=== PATIENT | female | born 1950 | race Caucasian/White ===

== ENCOUNTER 2019-12-06 09:40 | Emergency (ER) | payer MEDICARE, SELFPAY ==
[2019-12-06 09:55] VITALS: BP 150/81; PULSE 98; RESP 16; TEMP 36.6; O2SAT 99
--- NOTE | 2019-12-06 10:20 | ED.URI ---
HPI - URI/Sore Throat General Chief Complaint: Upper Respiratory Infection Stated Complaint: upper respiratory infection Time Seen by Provider: 12/06/19 10:00 Source: patient and RN notes reviewed Mode of arrival: ambulatory Limitations: no limitations History of Present Illness HPI Narrative: Patient presents today complaining of a one-week history of copious postnasal drip, and 2 to 3-day history of productive loose cough. Denies fever, shortness of breath. Reports postnasal drip and nasal drainage are clear. She takes Rosalina for seasonal allergies. She occasionally takes Benadryl, but not too often as she has glaucoma. States she does not have good luck with steroid nasal sprays as they cause epistaxis. MD elicited complaint: other (Postnasal drip, cough) Related Data Home Medications Medication Instructions Recorded Confirmed brimonidine 0.2 % OPHTHALMIC (EYE) DAILY 12/06/19 12/06/19 glimepiride 2 mg PO DAILY 12/06/19 12/06/19 levothyroxine [Euthyrox] 112 mcg PO DAILY 12/06/19 12/06/19 lisinopril 20 mg PO DAILY 12/06/19 12/06/19 lovastatin 10 mg PO DAILY 12/06/19 12/06/19 metformin 500 mg PO QID 12/06/19 12/06/19 omeprazole 20 mg PO DAILY 12/06/19 12/06/19 Allergies Allergy/AdvReac Type Severity Reaction Status Date / Time Cephalosporins Allergy Severe HIVES ALL Unverified 12/06/19 09:47 OVER ARMS AND CHEST. ciprofloxacin Allergy Mild Nausea and Verified 12/06/19 09:47 Vomiting Sulfa (Sulfonamide Allergy Mild THRUSH Verified 12/06/19 09:47 Antibiotics) CEPHALEXIN MONOHYDRATE Allergy Mild HIVES Uncoded 12/06/19 09:47 Review of Systems Review of Systems: Narrative: CONSTITUTIONAL: Denies body aches, fever, chills, or sweats.+ Fatigue EYES: Denies visual changes, redness, or discharge. ENT: Denies rhinorrhea, congestion, sore throat, or otalgia.+ Postnasal drip, rhinorrhea CARDIOVASCULAR: Denies chest pain, palpitations, or edema. RESPIRATORY: Denies dyspnea. + Cough GASTROINTESTINAL: Denies abdominal pain, nausea, vomiting, or diarrhea. GENITOURINARY: Denies dysuria or hematuria. SKIN: Denies rash, itching, or wounds. MUSCULOSKELETAL: Denies back pain, joint pain, or myalgia. NEUROLOGIC: Denies headache, numbness, tingling, or weakness. PSYCH: Denies depression or anxiety. [facility] Past Medical History Medical History (Updated 12/06/19 @ 10:27 by Elvi Martinez, [facility], ) Diabetes Glaucoma Hypercholesterolemia Hypertension TIA (transient ischemic attack) Comments At time of signature, I have reviewed and agree with nursing past medical, surgical, social and family history unless otherwise noted. Please see nursing chart for further information. There is no relevant family history pertinent to the presenting complaint Exam Narrative: Exam Narrative: GENERAL: Well-appearing, well-nourished, and in no acute distress. HEAD: Normocephalic, atraumatic. EYES: EOMI. No redness or drainage. Conjunctivae normal. ENT: Mucous membranes pink and moist. Nares clear. No rhinorrhea. TMs normal bilaterally. Throat normal. Small amount of white postnasal drainage. Uvula midline. NECK: Normal AROM. Supple. No lymphadenopathy. CHEST: No respiratory distress. Clear to auscultation. HEART: Regular rate and rhythm. No murmur appreciated. Normal peripheral pulses. MUSCULOSKELETAL: No bony tenderness. EXTREMITIES: Normal range of motion. No edema. SKIN: Warm, dry, no rash. Capillary refill normal. Normal skin turgor. NEURO: No focal deficits. Alert and oriented x3. Gait steady. PSYCH: Normal affect. No signs of depression or anxiety. Course Vital Signs Vital signs: Vital Signs Temperature 97.8 F 12/06/19 09:55 Pulse Rate 98 12/06/19 09:55 Respiratory Rate 16 12/06/19 09:55 Blood Pressure 150/81 H 12/06/19 09:55 Pulse Oximetry 99 12/06/19 09:55 Temperature 97.8 F 12/06/19 09:55 Pulse Rate 98 12/06/19 09:55 Respiratory Rate 16 12/06/19 09:55 Blood Pressure
== END 2019-12-06 10:26 | disposition home or self-care (01) ==
PROVIDERS: Emergency Provider Nurse Practitioner; PCP Physician Assistant
DX: J30.2 Other seasonal allergic rhinitis (principal); E11.9 Type 2 diabetes mellitus without complications; I10 Essential (primary) hypertension; Z86.73 Personal history of transient ischemic attack (TIA), and cerebral infarction without residual deficits
CPT/HCPCS: 99213; G0463

== ENCOUNTER → 2020-03-29 10:25 | Outpatient (CLI) | payer MEDICARE, SELFPAY ==
--- NOTE | ~2020-03-29 | MM_ITS ---
EXAMINATION: MM screening [facility] BI w allie HISTORY: Screening mammogram TECHNIQUE: Craniocaudal and mediolateral oblique 3-D tomosynthesis images were obtained and synthetic 2-D images were generated. CAD analysis was submitted and interpreted. COMPARISON: 10/26/2018, 10/23/2017, 10/21/2016 BREAST PARENCHYMAL COMPOSITION: There are scattered areas of fibroglandular density. FINDINGS: There is no evidence of suspicious mass, calcification, or architectural distortion to sugg est malignancy in either breast. There has been no suspicious interval change. IMPRESSION: 1. No mammographic evidence of malignancy. 2. Recommend routine screening mammography in one year. BI-RADS Category 1: Negative Reviewed, dictated and finalized at location A.
--- NOTE | ~2020-03-29 | DEXA_ITS ---
Bone Density Report Name: Debbie Enriquez Age: 69 Sex: Female Ethnicity: White Date of : 1950 Indication: postmenopausal; screening for osteoporosis; height loss; hysterectomy; Referring Provider: ELEONORA, JOS Study: Bone densitometry was performed. Exam Date: March 29, 2020 Accession number: [id number] Bone Density: Region BMD T-score Z-score Classification AP Spine (L1, L2) 1.192 1.9 3.9 Normal Femoral Neck (Left) 0.907 0.5 2.3 Normal Total Hip (Left) 0.955 0.1 1.6 Normal Femoral Neck (Right) 0.818 -0.3 1.5 Normal Total Hip (Right) 0.847 -0.8 0.7 Normal Total Hip Mean 0.901 -0.4 1.2 Normal World Health Organization criteria for BMD impression classify patients as: Normal (T-score at or above -1.0), Osteopenia (T-score between -1.0 and -2.5), or Osteoporosis (T-score at or below -2.5). 10-year Fracture Risk: FRAX not reported because: All T-scores for Spine Total, Hip Total, Femoral Neck at or above -1.0 Clinical Information Provided by Patient: Has used the following medications: Vitamin D Has the following medical conditions: Hysterectomy Patient maximum height was 71 Menopause Age: 47 No regular weight bearing exercise Drinks caffeinated beverages Onset of menses at age 13 Number of children 1 Impression: The patient has normal bone mass. Discussion: BONE DENSITY IS ABOVE THE MINIMUM DESIRABLE LEVEL AT ALL SKELETAL SITES TESTED. This patient?s bone mineral density is above the minimum desirable level (T-score -1.0 or better) at all sites measured. The patient should follow a healthful lifestyle (good nutrition with adequate calcium and vitamin D, and appropriate weight-bearing exercise). Follow-Up: Consider repeating this study in 5 years or sooner if there is some new clinical indication. Reported by: [facility] on 03/29/2020 10:56:00 AM. Reviewed, dictated and finalized at location AJersey MORTENSEN
== END ==
PROVIDERS: Visit Provider Physician Assistant
DX: Z12.31 Encounter for screening mammogram for malignant neoplasm of breast (principal); Z78.0 Asymptomatic menopausal state
CPT/HCPCS: 77063; 77067; 77080

== ENCOUNTER 2020-07-10 00:34 | Outpatient (CLI) | payer MEDICARE, SELFPAY ==
[2020-07-10 19:06] LABS: SARS-CoV-2 RNA PCR Negative
== END 2020-07-10 00:35 | disposition home or self-care (01) ==
LOC: ANHCOVIDDT 00:34
PROVIDERS: PCP Physician Assistant; Visit Provider Internal Medicine Gastroenterology
DX: Z01.812 Encounter for preprocedural laboratory examination (principal); Z20.822 Contact with and (suspected) exposure to COVID-19
CPT/HCPCS: C9803; U0003

== ENCOUNTER 2020-07-13 00:25 | Day surgery (SDC) | payer MEDICARE, SELFPAY ==
[2020-07-06 08:41] VITALS: BMI 26.9
[2020-07-13 08:19] VITALS: BP 153/91; PULSE 111; RESP 16; TEMP 36.1; O2SAT 99
[2020-07-13 08:37] LABS: Glucose Point of Care 195 (65-105)
[2020-07-13] MEDS: LACTATED RINGERS 1,000 ML 150 ML IV CONT (08:40)
--- NOTE | 2020-07-13 09:40 | WPDANESEPPF ---
Anes - Initial Pre Proc Eval Procedure: Operation Date: 07/13/20 09:30 Proposed Procedures p Screening Colonoscopy - Madan Caruso DO Date/Time: 07/13/20 09:40 Surgeon: Madan Caruso DO Pre Op Diagnosis: neoplasm screening Patient Data Age: 69 Gender: F Height: 5 ft 10 in Weight: 85.3 kg Last Vital Signs Temp 97.0 F L 07/13/20 08:19 Pulse 111 H 07/13/20 08:19 Resp 16 07/13/20 08:19 BP 153/91 H 07/13/20 08:19 Pulse Ox 99 07/13/20 08:19 Allergies Allergy/AdvReac Type Severity Reaction Status Date / Time ciprofloxacin Allergy Mild Nausea and Verified 07/13/20 08:18 Vomiting Sulfa (Sulfonamide Allergy Mild THRUSH Verified 07/13/20 08:18 Antibiotics) CEPHALEXIN MONOHYDRATE Allergy Mild HIVES Uncoded 07/13/20 08:18 Home Medications Medication Instructions Recorded Confirmed Type brimonidine 0.2 % OPHTHALMIC (EYE) DAILY 12/06/19 07/06/20 History glimepiride 2 mg PO DAILY 12/06/19 07/06/20 History levothyroxine [Euthyrox] 112 mcg PO DAILY 12/06/19 07/06/20 History lisinopril 20 mg PO DAILY 12/06/19 07/06/20 History metformin 500 mg PO QID 12/06/19 07/06/20 History omeprazole 20 mg PO DAILY 12/06/19 07/06/20 History aspirin 81 mg PO DAILY 07/06/20 07/06/20 History diphenhydramine HCl [Benadryl 25 mg PO HS PRN 07/06/20 07/06/20 History Allergy] fexofenadine [Rosalina] 180 mg PO DAILY 07/06/20 07/06/20 History Laboratory Tests 07/13/20 08:35 POC Capillary Glucose 195 mg/dl H mg/dl (65-105) Patient hx anesthesia problems: none Family hx anesthesia problems: none PMFSH Past Medical History Medical History (Updated 12/07/19 @ 00:00 by Background Daemon) Diabetes Glaucoma Hypercholesterolemia Hypertension TIA (transient ischemic attack) Social History Social History Smoking status: Never smoker Alcohol intake: never Substance use: never Substance use type: does not use Living arrangements: with family Spiritual care concerns: No Anes - Eval Final PreProcedure Day of Procedure 07/13/20 09:40 Patient weight: overweight Heart: regular rate and rhythm Lungs: clear to auscultation Airway: Mallampati scale class II Neurological: alert and oriented Last oral intake: >/= 8 hours ASA classification: III Emergent: no Anesthetic plan: proceed Anesthesia type and monitoring: general GIVS and standard monitoring Informed Consent: The patient's anesthetic plan and its attendant risks and benefits were discussed with the patient/family/POA. Questions were solicited and answers provided to the satisfaction of the patient/family/POA.
--- NOTE | 2020-07-13 09:57 | PM.IMHP ---
H&P: HPI History of Present Illness Date/Time: 07/13/20 09:57 Chief Complaint: Reason for visit colonoscopy. Narrative: Reason for visit this colonoscopy. This very pleasant lady's seen in consultation request the primary physician. Impression: Screening and surveillance colonoscopy. Patient's history adenomatous colon polyps. GERD controlled with medication. History of pancreatitis and pancreatic cyst. DM. HTN. Hypothyroidism. Glaucoma. Recommendation: Colonoscopy. Patient should have MRI of the pancreas due to pancreatic cystic lesion. History: This very pleasant lady is here for screening and surveillance colonoscopy. She has history adenomatous colon polyps. She has a history of reflux disease well controlled on medication. Previously she has had an EUS for pancreatic cyst. She has had pancreatitis previously. she is due for follow-up. GI review systems negative. Physical examination: General: very pleasant patient in no acute distress. HEENT: Head was normocephalic sclerae is clear mouth without masses neck was supple. Heart: Rate rhythm regular without S3 or S4. Lungs: CTA. Abdomen: Soft with no guarding or rigidity. Bowel sounds were active. Neurologic: Cranial nerves 2 through 12 intact. No focal defects. No clonus. Musculoskeletal system: Revealed no joint tenderness or swelling no muscle atrophy. Extremities: Reveal no significant edema. Skin: Warm and dry with normal turgor. Mental status: intact. Patient is alert and oriented. Review of Systems Review of Systems: All systems reviewed & are unremarkable except as noted in HPI and below PMFSH Past Medical History Medical History (Updated 07/13/20 @ 09:56 by Madan Caruso DO) Adenomatous colon polyp Diabetes GERD (gastroesophageal reflux disease) Glaucoma Hypercholesterolemia Hypertension Hypothyroid Pancreatic cyst Pancreatitis TIA (transient ischemic attack) Surgical History Surgical History (Updated 07/13/20 @ 09:57 by Madan Caruso DO) History of esophagogastroduodenoscopy (EGD) Hx of colonoscopy Social History Social History Smoking status: Never smoker Alcohol intake: never Substance use: never Substance use type: does not use Living arrangements: with family Spiritual care concerns: No Meds Home Medications and Allergies Home Medications Medication Instructions Recorded Confirmed Type brimonidine 0.2 % OPHTHALMIC (EYE) DAILY 12/06/19 07/06/20 History glimepiride 2 mg PO DAILY 12/06/19 07/06/20 History levothyroxine [Euthyrox] 112 mcg PO DAILY 12/06/19 07/06/20 History lisinopril 20 mg PO DAILY 12/06/19 07/06/20 History metformin 500 mg PO QID 12/06/19 07/06/20 History omeprazole 20 mg PO DAILY 12/06/19 07/06/20 History aspirin 81 mg PO DAILY 07/06/20 07/06/20 History diphenhydramine HCl [Benadryl 25 mg PO HS PRN 07/06/20 07/06/20 History Allergy] fexofenadine [Rosalina] 180 mg PO DAILY 07/06/20 07/06/20 History Allergies Allergy/AdvReac Type Severity Reaction Status Date / Time ciprofloxacin Allergy Mild Nausea and Verified 07/13/20 08:18 Vomiting Sulfa (Sulfonamide Allergy Mild THRUSH Verified 07/13/20 08:18 Antibiotics) CEPHALEXIN MONOHYDRATE Allergy Mild HIVES Uncoded 07/13/20 08:18 Vital Signs Vital Signs - 24 hr 07/13/20 08:19 Temperature 36.1 C L Pulse Rate 111 H Respiratory Rate 16 Blood Pressure 153/91 H Pulse Oximetry 99
[2020-07-13 10:36] VITALS: BP 101/44; PULSE 78; RESP 16; O2SAT 100
[2020-07-13 10:46] VITALS: BP 117/61; PULSE 83; RESP 16; O2SAT 99
[2020-07-13 10:56] VITALS: BP 136/64; PULSE 50; RESP 16; O2SAT 100
[2020-07-18 06:14] LABS: CA 19-9 27 U/mL (<34)
== END 2020-07-13 11:23 | disposition home or self-care (01) ==
PROVIDERS: PCP Physician Assistant; Visit Provider Internal Medicine Gastroenterology
PROC: 0DJD8ZZ Inspection of Lower Intestinal Tract, Via Natural or Artificial Opening Endoscopic (ICD-10-PCS; CPT 45378; principal; 2020-07-13 09:30)
DX: Z12.11 Encounter for screening for malignant neoplasm of colon (principal); D12.3 Benign neoplasm of transverse colon; D12.4 Benign neoplasm of descending colon; D12.2 Benign neoplasm of ascending colon; K63.5 Polyp of colon; K64.8 Other hemorrhoids; K86.2 Cyst of pancreas; I10 Essential (primary) hypertension; E11.9 Type 2 diabetes mellitus without complications; E78.00 Pure hypercholesterolemia, unspecified; H40.9 Unspecified glaucoma; K21.9 Gastro-esophageal reflux disease without esophagitis; E03.9 Hypothyroidism, unspecified; Z86.73 Personal history of transient ischemic attack (TIA), and cerebral infarction without residual deficits; Z79.84 Long term (current) use of oral hypoglycemic drugs; Z79.82 Long term (current) use of aspirin; Z20.822 Contact with and (suspected) exposure to COVID-19
CPT/HCPCS: 45385; 45380; 36415; 86301; 88305; C9803; J2704; J7120; U0003

== ENCOUNTER 2020-08-03 09:40 | Outpatient (CLI) | payer MEDICARE, SELFPAY ==
--- NOTE | ~2020-08-03 | CT_ITS ---
EXAMINATION: CT abdomen pelvis w con DATE: 08/03/2020 10:19 INDICATION: Abdominal distention TECHNIQUE: Computed tomography (CT) of the abdomen and pelvis was performed with 100 cc intravenous c ontrast. Automated exposure control and iterative reconstruction technique were employed. Exam dose: 730.65 mGy-cm total exam DLP. COMPARISON: 10/14/2013 CT abdomen pelvis FINDINGS: The lung bases are clear of infiltrate or consolidation. Normal heart size. No pericardial or pleural effusion. There is a very small sliding hiatal hernia. Hepatic steatosis. There are numerous calcified hepatic and splenic granulomas consistent with old granulomatous disease . No hepatic or splenic space-occupying mass lesion is evident. The gallbladder is distended but no g allbladder wall thickening or pericholecystic fluid or fat stranding is noted. No bile duct dilatatio n or pancreatic duct dilatation is evident. Mildly diminished size of a cystic lesion of the pancreatic tail since 10/14/2013, consistent with jorden ign process. 9 mm cystic area in the uncinate process of the pancreas appears stable since 10/14/2013. Normal morphology of the adrenal glands. 9 mm lower pole left renal cyst. No other renal space occupying mass lesion. No urinary tract calculu s or hydroureteronephrosis. The urinary bladder is unremarkable. Status post hysterectomy. Normal caliber of the abdominal aorta. No intraperitoneal or retroperitoneal or pelvic mass lesion or adenopathy or ascites. There is diverticulosis of the sigmoid colon; no CT evidence of diverticulitis. No bowel obstruction, bowel wall thickening, pneumatosis or intraperitoneal free air is evident. Normal appendix. There is degenerative change of the thoracic spine. There is severe degenerative change of the lumbar spine. IMPRESSION: Very small sliding hiatal hernia Hepatic steatosis Stable pancreatic cysts since 10/14/2013 9 mm lower pole left renal cyst Diverticulosis of the sigmoid colon Reviewed, dictated and finalized at Location A. Reviewed, dictated and finalized at location A. GER FRENCH
[2020-08-03 10:10] LABS: Estimated Glomerular Filt Rate > 60
== END 2020-08-03 09:41 | disposition home or self-care (01) ==
PROVIDERS: PCP Physician Assistant; Visit Provider Internal Medicine Gastroenterology
DX: R14.0 Abdominal distension (gaseous) (principal); K44.9 Diaphragmatic hernia without obstruction or gangrene; K76.0 Fatty (change of) liver, not elsewhere classified; N28.1 Cyst of kidney, acquired; K57.30 Diverticulosis of large intestine without perforation or abscess without bleeding
CPT/HCPCS: 74177; Q9967

== ENCOUNTER → 2021-05-03 10:10 | Outpatient (CLI) | payer MEDICARE, SELFPAY ==
--- NOTE | ~2021-05-03 | MM_ITS ---
EXAMINATION: MM screening [facility] BI w allie HISTORY: Screening TECHNIQUE: Craniocaudal and mediolateral oblique 3-D tomosynthesis images were obtained and synthetic 2-D images were generated. CAD analysis was submitted and interpreted. COMPARISON: Comparison to multiple prior studies sequentially, with oldest reviewed study dated 02/27. BREAST PARENCHYMAL COMPOSITION: There are scattered areas of fibroglandular density. FINDINGS: There is no evidence of suspicious mass, calcification, or architectural distortion to sugg est malignancy in either breast. There has been no suspicious interval change. IMPRESSION: 1. No mammographic evidence of malignancy. 2. Recommend routine screening mammography in one year. BI-RADS Category 1: Negative Reviewed, dictated and finalized at location A.
== END ==
PROVIDERS: PCP Physician Assistant; Visit Provider Physician Assistant
DX: Z12.31 Encounter for screening mammogram for malignant neoplasm of breast (principal)
CPT/HCPCS: 77063; 77067

== ENCOUNTER 2021-08-09 12:25 | Emergency (ER) | payer MEDICARE, SELFPAY ==
--- NOTE | ~2021-08-09 | XR_ITS ---
XR lumbar spine 2-3V DATE: 08/09/2021 13:01 INDICATION: Lower back pain TECHNIQUE: AP, lateral, coned lateral lumbosacral views COMPARISON: 06/10/2018 lumbar spine FINDINGS: There is diffuse osteopenia. There is approximately 26 degrees levoscoliosis measured T11-L4. There is severe degenerative disc disease at L2-3, L3-4, L4-5 and L5-S1, with moderate thoracolumbar degenerative disc disease above these levels. No fracture or bone destruction is evident. The lumbar pedicles and included lower thoracic pedicles appear intact. The sacroiliac joints are intact. IMPRESSION: 26 degrees levoscoliosis from T11 to L4 Severe degenerative disc disease of the lumbar spine No significant change since 06/10/2018 Reviewed, dictated and finalized at location A. PLACER
--- NOTE | 2021-08-09 12:36 | ED.BACK ---
HPI - Back Pain/Injury General Chief Complaint: Back Pain/Injury Stated Complaint: arm and back pain Time Seen by Provider: 08/09/21 12:40 Source: patient, family, RN notes reviewed and old records reviewed Mode of arrival: ambulatory Limitations: no limitations History of Present Illness HPI Narrative: 70-year-old female presents to the [facility] with right deltoid pain and lower back pain for the last 5 weeks. Patient states that her COVID shot was very painful and her arm has been hurting ever since in the right deltoid right upper arm. Patient has a history of chronic back pain, states she is seen her primary care provider multiple times and has a very bad back. States today after she got her Covid vaccine her back started hurting. Denies any urinary symptoms. No frequency urgency or burning. No numbness or tingling in extremities. Patient reports that the pain shoots down both her legs. No pelvic pain. No saddle anesthesia. MD elicited complaint: back pain Pertinent past history: prior back pain Related Data Home Medications Medication Instructions Recorded Confirmed glimepiride 2 mg PO DAILY 12/06/19 08/09/21 lisinopril 20 mg PO DAILY 12/06/19 08/09/21 metformin 500 mg PO QID 12/06/19 08/09/21 levothyroxine 125 mcg DAILY 08/09/21 08/09/21 Allergies Allergy/AdvReac Type Severity Reaction Status Date / Time ciprofloxacin Allergy Mild Nausea and Verified 02/08/21 10:21 Vomiting Sulfa (Sulfonamide Allergy Mild THRUSH Verified 02/08/21 10:21 Antibiotics) cephalexin Allergy Unknown Verified 02/08/21 10:21 CEPHALEXIN MONOHYDRATE Allergy Mild HIVES Uncoded 02/08/21 10:21 Review of Systems Review of Systems: All systems reviewed & are unremarkable except as noted in HPI and below Constitutional: Constitutional: Reports no additional constitutional complaints and Denies weakness Eyes: Eyes: Reports no additional eye complaints ENT: Reports system reviewed and no additional complaints, except as documented Cardiovascular: Cardiovascular: Reports no additional cardiovascular complaints and Denies chest pain Respiratory: Respiratory: Reports no additional respiratory complaints, Denies cough and Denies dyspnea Gastrointestinal: Gastrointestinal: Reports no additional gastrointestinal complaints, Denies abdominal pain, Denies nausea and Denies vomiting Genitourinary: Genitourinary: Reports no additional female genitourinary complaints Musculoskeletal: Musculoskeletal: Reports as per HPI, Reports back pain (Lumbar), Reports muscle cramps (Right upper arm, deltoid x5 weeks) and Denies numbness Integumentary/Breasts: Skin/Breast: Reports system reviewed and no additional complaints, except as docu Neurologic: Reports system reviewed and no additional complaints, except as documented, Denies focal weakness, Denies numbness and Denies weakness Psychiatric: Psychiatric: Reports no additional psychiatric complaints Allergic/Immunologic: Allergic/Immunologic: Reports no additional allergic/immunologic complaints PMFSH Past Medical History Medical History Adenomatous colon polyp Diabetes GERD (gastroesophageal reflux disease) Glaucoma Hypercholesterolemia Hypertension Hypothyroid Pancreatic cyst Pancreatitis TIA (transient ischemic attack) Surgical History Surgical History History of esophagogastroduodenoscopy (EGD) Hx of colonoscopy Family History Family History Mother Hypertension Family history of cardiovascular disease Father Family history of cardiovascular disease Family history of Alzheimer's disease Social History Social History Smoking status: Never smoker Alcohol intake: never Substance use: never Substance use type: does not use Spiritual care concerns: No Comments At the ti
[2021-08-09 12:41] VITALS: BP 174/94; PULSE 100; RESP 18; TEMP 37.2; O2SAT 100
[2021-08-09 13:25] LABS: Glucose Point of Care 243 mg/dl (65-105)
== END 2021-08-09 13:38 | disposition home or self-care (01) ==
PROVIDERS: Emergency Provider Nurse Practitioner; PCP Physician Assistant
DX: M54.16 Radiculopathy, lumbar region (principal); M51.36 Other intervertebral disc degeneration, lumbar region; G89.29 Other chronic pain; M54.50 Low back pain, unspecified; E11.9 Type 2 diabetes mellitus without complications; K21.9 Gastro-esophageal reflux disease without esophagitis; H40.9 Unspecified glaucoma; E78.00 Pure hypercholesterolemia, unspecified; I10 Essential (primary) hypertension; E03.9 Hypothyroidism, unspecified; Z86.73 Personal history of transient ischemic attack (TIA), and cerebral infarction without residual deficits
CPT/HCPCS: 72100; 82948; 99213; G0463

== ENCOUNTER 2021-08-15 07:55 | Emergency (ER) | payer MEDICARE, SELFPAY ==
--- NOTE | ~2021-08-15 | CT_ITS ---
EXAMINATION: CT lumbar spine wo con DATE: 08/15/2021 09:24 INDICATION: Low back injury. Ankylosing spondylitis. TECHNIQUE: Computed tomography (CT) of the lumbar spine was performed without intravenous contrast. A utomated exposure control and iterative reconstruction technique were employed. The dose-length produ ct was 1198.44 mGy-cm. COMPARISON: Lumbar spine radiographs 08/09/2021, 01/19/04 FINDINGS: There is 26 degrees levoscoliosis of thoracolumbar spine. Vertebral body heights are normal . There is severely decreased disc height from L3-L4 through L5-S1 with endplate remodeling. There ar e bridging endplate osteophytes from T11-T12 through L2-L3. There is fusion of the spinous processes from T11-T12 through L2-L3. There is mildly decreased disc height from T11-T12 through L1-L2 and mode rately decreased disc height at L2-L3 with disc calcifications of some of these levels. There is mode rate osteoarthritis of the sacroiliac joints. The following disc levels are specifically discussed: L1-L2: The disc does not extend beyond the endplate margin. There is mild bilateral facet joint hyper trophy. There is no neural foraminal stenosis. There is no central canal stenosis. L2-L3: The disc does not extend beyond the endplate margin. There is moderate bilateral facet joint h ypertrophy. There is mild bilateral neural foraminal stenosis. There is no central canal stenosis. L3-L4: The disc is bulging. There is severe bilateral facet joint osteoarthritis. There is moderate r ight and mild left neural foraminal stenosis. There is mild central canal stenosis. L4-L5: The disc is bulging. There is severe bilateral facet joint osteoarthritis. There is moderate b ilateral neural foraminal stenosis. There is mild central canal stenosis. L5-S1: The disc is bulging. There is severe bilateral facet joint osteoarthritis. There is mild right and moderate left neural foraminal stenosis. There is mild central canal stenosis. IMPRESSION: 1. No fracture. 2. Severe lumbar spondylosis. 3. Thoracolumbar levoscoliosis. 4. Bridging endplate osteophytes and spinous process fusion from the thoracic spine to L3, consistent with diffuse idiopathic skeletal hyperostosis (DISH). Reviewed, dictated and finalized at location A. ER RIDER IMPRESSION: 1. No fracture. 2. Severe lumbar spondylosis. 3. Thoracolumbar levoscoliosis. 4. Bridging endplate osteophytes and spinous process fusion from the thoracic s pine to L3, consistent with diffuse idiopathic skeletal hyperostosis (DISH).
[2021-08-15 08:00] VITALS: BP 189/112; PULSE 99; RESP 16; TEMP 36.1; O2SAT 100
--- NOTE | 2021-08-15 09:23 | ED.BACK ---
HPI - Back Pain/Injury General Chief Complaint: Back Pain/Injury Stated Complaint: lower back pain Time Seen by Provider: 08/15/21 08:36 Source: patient Mode of arrival: ambulatory Limitations: no limitations History of Present Illness HPI Narrative: 71 years old white female presents with chronic lower back pain got worse over the last 5 weeks. History of ankylosing spondylitis, been taking [id number] Tylenol and ibuprofen, never been seen by a volleyball player or back doctor before. Patient been to pain management physician in the past. Patient denies any recent trauma. Patient denies bowel dysfunction, bladder dysfunction, altered sensation, focal weakness, or saddle numbness,. Patient denies any fever, chills, nausea, vomiting, diarrhea, constipation, urinary symptoms Related Data Home Medications Medication Instructions Recorded Confirmed glimepiride 2 mg PO DAILY 12/06/19 08/09/21 lisinopril 20 mg PO DAILY 12/06/19 08/09/21 metformin 500 mg PO QID 12/06/19 08/09/21 levothyroxine 125 mcg DAILY 08/09/21 08/09/21 brimonidine drp 08/15/21 timolol maleate drp 08/15/21 Allergies Allergy/AdvReac Type Severity Reaction Status Date / Time ciprofloxacin Allergy Mild Nausea and Verified 02/08/21 10:21 Vomiting Sulfa (Sulfonamide Allergy Mild THRUSH Verified 02/08/21 10:21 Antibiotics) cephalexin Allergy Unknown Verified 02/08/21 10:21 CEPHALEXIN MONOHYDRATE Allergy Mild HIVES Uncoded 02/08/21 10:21 Review of Systems Review of Systems: CONSTITUTIONAL: Denies fever, chills, or sweats. EYES: Denies visual changes, redness, or discharge. ENT: Denies rhinorrhea, congestion, sore throat, or otalgia. CARDIOVASCULAR: Denies chest pain, palpitations, or edema. RESPIRATORY: Denies cough or dyspnea. GASTROINTESTINAL: Denies abdominal pain, nausea, vomiting, or diarrhea. GENITOURINARY: Denies dysuria or hematuria. SKIN: Denies rash or itching. MUSCULOSKELETAL: Diffuse lower back pain across the lumbar area NEUROLOGIC: Denies headache, numbness, or weakness. PSYCHIATRIC: Denies anxiety or depression. [facility] Past Medical History Medical History Adenomatous colon polyp Diabetes GERD (gastroesophageal reflux disease) Glaucoma Hypercholesterolemia Hypertension Hypothyroid Pancreatic cyst Pancreatitis TIA (transient ischemic attack) Surgical History Surgical History History of esophagogastroduodenoscopy (EGD) Hx of colonoscopy Family History Family History Mother Hypertension Family history of cardiovascular disease Father Family history of cardiovascular disease Family history of Alzheimer's disease Social History Social History Smoking status: Never smoker Alcohol intake: never Substance use: never Substance use type: does not use Spiritual care concerns: No Exam Narrative: General appearance: Well-developed, well-nourished Skin: Normal color Head: Normocephalic, nontraumatic Eyes: Clear conjunctiva ENT: Oropharynx normal, ears normal, nose normal Neck: Supple, nontender Chest and respiratory: Airway patent, no respiratory distress, no accessory muscle use Heart: Regular rate/rhythm Abdomen: Soft, nontender, no organomegaly, quiet bowel sounds Vascular: Normal peripheral pulses, normal capillary refill. 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
[2021-08-15] MEDS: ONDANSETRON HCL ODT 4 MG TABLET PO (09:27)
[2021-08-15] MEDS: diazePAM (*CRX) 5 MG TABLET PO (09:27)
[2021-08-15] MEDS: KETOROLAC (*BKC) 60 MG/2 ML VIAL IM (09:28)
[2021-08-15] MEDS: HYDROmorphone HCL INJ (*CRX) 1 MG/ML SYR IM (09:28)
[2021-08-15 13:05] VITALS: BP 197/96; PULSE 86; RESP 15; O2SAT 99
== END 2021-08-15 13:09 | disposition home or self-care (01) ==
PROVIDERS: Emergency Provider Emergency Medicine; PCP Physician Assistant
DX: M54.50 Low back pain, unspecified (principal); E11.9 Type 2 diabetes mellitus without complications; K21.9 Gastro-esophageal reflux disease without esophagitis; E78.5 Hyperlipidemia, unspecified; I10 Essential (primary) hypertension; E03.9 Hypothyroidism, unspecified
CPT/HCPCS: 72131; 96372; 99284; A9270; J1170; J1885

== ENCOUNTER 2021-10-04 10:45 | Outpatient (CLI) | payer MEDICARE, SELFPAY ==
--- NOTE | ~2021-10-04 | XR_ITS ---
EXAMINATION: XR shoulder RT min 2V DATE: 10/04/2021 11:15 INDICATION: Right shoulder pain TECHNIQUE: AP internally and externally rotated, AP oblique externally rotated and transscapular Y vi ews of the right shoulder were obtained. COMPARISON: None FINDINGS: Diffuse osteopenia. Normal alignment. No fracture.Mild glenohumeral osteoarthritis. Moderate acromio clavicular osteoarthritis. Large subacromial spur. Subtle calcification projecting along the posterio r aspect of the humeral head on the transscapular Y projection likely related to rotator cuff calcifi c tendinitis. Soft tissues are unremarkable. Right lung is clear. IMPRESSION: 1. Mild right glenohumeral and moderate acromioclavicular osteoarthritis. 2. Large subacromial spur which could predispose towards rotator cuff disease and small focus of like ly rotator cuff calcific tendinitis. Reviewed, dictated and finalized at location B. IMPRESSION: 1. Mild right glenohumeral and moderate acromioclavicular osteoarthritis. 2. Large subacromial spur which could predispose towards rotator cuff disease a nd small focus of likely rotator cuff calcific tendinitis.
--- NOTE | ~2021-10-04 | XR_ITS ---
EXAMINATION: XR cervical spine 4-5V EXAM DATE: 10/04/2021 11:15 INDICATION: Neck pain radiating to right shoulder, limited range of motion. TECHNIQUE: Cervical spine frontal, lateral, lateral swimmers, and open-mouth odontoid projections. C omparison is made to prior examination from 02/12/2006. FINDINGS: There is moderate loss of the disc height at C6-7, mild to moderate at C5-6 and mild at C4 -5. The odontoid process is intact. The lateral masses of C1 line up with C2. Prevertebral soft tiss ue and pre-dens space are within normal limits. The vertebral bodies are aligned in the AP dimension. Moderate to severe cervical arthropathy. There is evidence of thoracic dextroscoliosis. Significant progression spondylosis compared to 2005. Lung apices are clear. IMPRESSION: Moderate to severe cervical arthropathy. Lower cervical disc disease, C6-7 most affected . Reviewed, dictated and finalized at location A. IMPRESSION: Moderate to severe cervical arthropathy. Lower cervical disc disea se, C6-7 most affected.
== END 2021-10-04 10:46 | disposition home or self-care (01) ==
PROVIDERS: PCP Physician Assistant
DX: M50.323 Other cervical disc degeneration at C6-C7 level (principal); M19.011 Primary osteoarthritis, right shoulder
CPT/HCPCS: 72050; 73030

== ENCOUNTER → 2021-10-20 10:56 | Outpatient (CLI) | payer MEDICARE, SELFPAY ==
--- NOTE | ~2021-10-20 | MR_ITS ---
EXAMINATION: MR cervical spine wo con DATE: 10/20/2021 12:06 INDICATION: Cervical radiculopathy. Right-sided neck pain. TECHNIQUE: Magnetic resonance imaging (MRI) of the cervical spine was performed without intravenous c ontrast. Sequences included sagittal T2-weighted FSE, sagittal T2-weighted FS FSE, sagittal T1-weight ed FSE, axial MERGE, and axial T2-weighted FSE. COMPARISON: Cervical spine radiographs 10/04/2021 FINDINGS: There is 12 degrees levoscoliosis of cervical thoracic spine. Vertebral body heights are no rmal. There is mildly decreased disc height at C5-C6 and severely decreased disc height at C6-C7. The spinal cord signal intensity is normal. The following disc levels are specifically discussed: C2-C3: The disc does not extend beyond the endplate margin. There is no uncovertebral joint osteoarth ritis. There is ankylosis of the facet joints with mild hypertrophy on the left. There is no neural f oraminal stenosis. There is no central canal stenosis. C3-C4: The disc is bulging. There is mild bilateral uncovertebral joint osteoarthritis. There is maria luisa re bilateral facet joint osteoarthritis. There is mild bilateral neural foraminal stenosis. There is mild central canal stenosis. C4-C5: The disc is bulging. There is mild bilateral uncovertebral joint osteoarthritis. There is mild right and severe left facet joint osteoarthritis. There is mild left neural foraminal stenosis. Ther e is mild central canal stenosis. C5-C6: The disc is bulging. There is severe bilateral uncovertebral joint osteoarthritis. There is mo derate bilateral facet joint osteoarthritis. There is mild bilateral neural foraminal stenosis. There is mild central canal stenosis. C6-C7: The disc is bulging. There is severe bilateral uncovertebral joint osteoarthritis. There is mo derate right and mild left facet joint osteoarthritis. There is mild bilateral neural foraminal steno sis. There is mild central canal stenosis. C7-T1: The disc is bulging. There is no uncovertebral joint osteoarthritis. There is severe bilateral facet joint osteoarthritis. There is mild bilateral neural foraminal stenosis. There is no central c anal stenosis. IMPRESSION: 1. Severe cervical spondylosis. 2. Cervicothoracic levoscoliosis. Reviewed, dictated and finalized at location A.
== END ==
DX: M47.22 Other spondylosis with radiculopathy, cervical region (principal)
CPT/HCPCS: 72141

== ENCOUNTER 2021-11-29 10:13 | Emergency (ER) | payer MEDICARE, SELFPAY ==
[2021-11-29 10:19] VITALS: BP 142/88; PULSE 112; RESP 20; TEMP 36.6; O2SAT 98
--- NOTE | 2021-11-29 10:23 | ECG_ITS ---
Measurements Intervals [place] Rate: 107 P: -10 NH: 131 QRS: -41 QRSD: 122 T: -29 QT: 332 QTc: 444 Interpretive Statements SINUS TACHYCARDIA RIGHT BUNDLE BRANCH BLOCK [120+ ms QRS DURATION, UPRIGHT V1, 40+ ms S IN I/aVL/V4/V5/V6] POSSIBLE ANTERIOR MYOCARDIAL INFARCTION , OF INDETERMINATE AGE [30 ms Q WAVE IN V3/V4, OR R < 0.2 mV IN V4] BASELINE ARTIFACT MODERATE T-WAVE ABNORMALITY, CONSIDER LATERAL ISCHEMIA [-0.1+ mV T WAVE IN I/aVL/V5/V6] ABNORMAL ECG COMPARED TO ECG 08/20/2018 15:15:05 POSSIBLE ANTERIOR INFARCTION NOTED Electronically Signed On 11-29-2021 17:50:52 CDT by Odilon Brito M.D.
[2021-11-29 10:45] LABS: Basophils Absolute Auto 0.1 K/mm3 (0.0-0.1); Basophils Percent Auto 0.5 % (0.2-1.2); Eosinophils Absolute Auto 0.2 K/mm3 (0-0.3); Eosinophils Percent Auto 1.5 % (0-4.4); Hematocrit 47.8 % (37.0-47.0); Hemoglobin 16.1 g/dL (12.0-15.0); Immature Granulocyte Absolute 0.05 K/mm3 (0.00-0.031); Immature Granulocyte Percent A 0.4 % (0-0.5); Lymphocytes Absolute Auto 2.08 K/mm3 (0.9-3.2); Lymphocytes Percent Auto 16.8 % (18.3-44.2); Mean Corpuscular HGB Conc 33.7 g/dl (32-36); Mean Corpuscular Hemoglobin 30.1 pg (26-34); Mean Corpuscular Volume 89.5 fl (80-100); Mean Platelet Volume 10.3 fl (7.4-10.4); Monocytes Absolute Auto 0.6 K/mm3 (0.1-0.6); Monocytes Percent Auto 4.7 % (2.6-8.5); Neutrophils Absolute Auto 9.5 K/mm3 (1.3-6.7); Neutrophils Percent Auto 76.1 % (45.5-73.1); Platelet Count Result 300 k/mm3 (150-375); Red Blood Count 5.34 M/mm3 (4.2-5.4); Red Cell Distribution Width 13.3 % (11.5-14.5); White Blood Count 12.4 K/mm3 (4.5-10.0)
[2021-11-29 11:00] LABS: Alanine Aminotransferase 79 U/L (6-35); Albumin Level 4.6 g/dL (3.5-5.1); Alkaline Phosphatase 135 U/L (38-126); Anion Gap 11 mmol/L (8-16); Aspartate Amino Transferase 54 U/L (14-36); Bilirubin,Total 1.2 mg/dL (0.2-1.3); Blood Urea Nitrogen 24 mg/dL (7-17); Calcium 10.2 mg/dL (8.4-10.2); Carbon Dioxide 24 mmol/L (22-30); Chloride 100 mmol/L (98-107); Estimated CRCL calculation 61 ml/min; Estimated Glomerular Filt Rate > 60; Glucose 277 mg/dL (65-110); Potassium 4.7 mmol/L (3.4-5.0); Sodium 135 mmol/L (137-145)
[2021-11-29 11:03] VITALS: PULSE 106; RESP 15; O2SAT 97
[2021-11-29 11:04] VITALS: BP 137/73; PULSE 107; RESP 17; O2SAT 95
--- NOTE | 2021-11-29 12:21 | ED.GENADULT ---
HPI - General Adult General Chief complaint: Unspecified Stated complaint: EXTERNAL HEMORRHOID BLEEDING/PAINFUL Time Seen by Provider: 11/29/21 11:54 Source: patient History of Present Illness HPI narrative: Patient presents with bloody stool and when she woke up this morning and had a bowel movement and noted blood with her stool. Patient also rated pain with her bowel movement. She reports mild amount of rectal pain since yesterday achy, constant, worse with bowel movements, no radiation. Reports a history of internal hemorrhoid feels like she is having a hemorrhoid flareup. Denies any lightheadedness dizziness chest pain shortness of breath to me. Patient also reports congestion over the past week and a sinus headache she has had ibuprofen without relief. Headache is achy, constant, no radiation, no clear aggravating or alleviating factors, no cough no fevers no shortness of breath. Related Data Home Medications Medication Instructions Recorded Confirmed glimepiride 2 mg tablet 2 mg PO DAILY 12/06/19 09/13/21 metformin 500 mg tablet 500 mg PO QID 12/06/19 09/13/21 levothyroxine 125 mcg tablet 125 mcg DAILY 08/09/21 09/13/21 brimonidine 0.2 % eye drops drp 08/15/21 09/13/21 timolol maleate 0.5 % eye drops drp 08/15/21 09/13/21 diphenhydramine HCl 25 mg capsule 25 mg PO QHS 09/13/21 09/13/21 (Benadryl) Allergies Allergy/AdvReac Type Severity Reaction Status Date / Time ciprofloxacin Allergy Mild Nausea and Verified 11/29/21 11:06 Vomiting Sulfa (Sulfonamide Allergy Mild THRUSH Verified 11/29/21 11:06 Antibiotics) cephalexin Allergy Unknown Unknown Verified 11/29/21 11:06 CEPHALEXIN MONOHYDRATE Allergy Mild HIVES Uncoded 11/29/21 11:06 Review of Systems Review of Systems: CONSTITUTIONAL: Denies fever, chills, or sweats. EYES: Denies visual changes, redness, or discharge. ENT: Denies rhinorrhea, sore throat, or otalgia. CARDIOVASCULAR: Denies chest pain, palpitations, or edema. RESPIRATORY: Denies cough or dyspnea. GASTROINTESTINAL: Denies abdominal pain, nausea, vomiting, or diarrhea. GENITOURINARY: Denies dysuria or hematuria. SKIN: Denies rash or itching. MUSCULOSKELETAL: Denies back pain, joint pain, or myalgia. NEUROLOGIC: Denies numbness, dizziness, or weakness. PSYCHIATRIC: Denies anxiety or depression. All systems reviewed & are unremarkable except as noted in HPI and below PMFSH Past Medical History Medical History Adenomatous colon polyp Diabetes GERD (gastroesophageal reflux disease) Glaucoma Hypercholesterolemia Hypertension Hypothyroid Pancreatic cyst Pancreatitis TIA (transient ischemic attack) Surgical History Surgical History History of esophagogastroduodenoscopy (EGD) Hx of colonoscopy Family History Family History Mother Hypertension Family history of cardiovascular disease Father Family history of cardiovascular disease Family history of Alzheimer's disease Social History Social History Smoking status: Never smoker Alcohol intake: never Substance use: never Substance use type: does not use Spiritual care concerns: No Exam Narrative: GENERAL: Well-appearing, well-nourished, and in no acute distress. HEAD: Normocephalic, atraumatic. EYES: PERRLA and EOMI. ENT: Nares clear, no rhinorrhea or epistaxis. Mucous membranes moist. No tenderness to percussion on the sinuses NECK: Supple. No masses. No JVD RECTAL: Patient with swollen hemorrhoids anal fissure no active bleeding stool is brown not melanotic EXTREMITIES: Normal range of motion. No edema. SKIN: Warm, dry, no rash. NEURO: No focal deficits. Alert and oriented x3. PSYCH: Normal mood and affect. Course Vital Signs Vital signs: Vital Signs Temperature 36.6 C 11/29/21 10:19 P
[2021-11-29 12:35] VITALS: PULSE 99; RESP 16
== END 2021-11-29 12:37 | disposition home or self-care (01) ==
PROVIDERS: Emergency Medicine; Emergency Provider Emergency Medicine; PCP Physician Assistant
DX: K60.2 Anal fissure, unspecified (principal); K64.9 Unspecified hemorrhoids; E11.9 Type 2 diabetes mellitus without complications; E78.00 Pure hypercholesterolemia, unspecified; I10 Essential (primary) hypertension; E03.9 Hypothyroidism, unspecified; H40.9 Unspecified glaucoma; K21.9 Gastro-esophageal reflux disease without esophagitis; Z86.73 Personal history of transient ischemic attack (TIA), and cerebral infarction without residual deficits; Z86.010 Personal history of colon polyps; Z79.84 Long term (current) use of oral hypoglycemic drugs; R00.0 Tachycardia, unspecified; I45.10 Unspecified right bundle-branch block; R94.31 Abnormal electrocardiogram [ECG] [EKG]
CPT/HCPCS: 36415; 80053; 85025; 93005; 99283

== ENCOUNTER 2022-05-30 15:04 | Emergency (ER) | payer MEDICARE, SELFPAY ==
[2022-05-30 15:24] VITALS: BP 190/108; PULSE 114; RESP 18; TEMP 36.3; O2SAT 98
[2022-05-30 16:00] LABS: Basophils Absolute Auto 0.1 K/mm3 (0.0-0.1); Basophils Percent Auto 0.6 % (0.2-1.2); Eosinophils Absolute Auto 0.4 K/mm3 (0-0.3); Eosinophils Percent Auto 4.7 % (0-4.4); Hemoglobin 15.1 g/dL (12.0-15.0); Immature Granulocyte Absolute 0.01 K/mm3 (0.00-0.031); Immature Granulocyte Percent A 0.1 % (0-0.5); Lymphocytes Absolute Auto 2.93 K/mm3 (0.9-3.2); Lymphocytes Percent Auto 34.7 % (18.3-44.2); Mean Corpuscular HGB Conc 33.6 g/dl (32-36); Mean Corpuscular Hemoglobin 29.9 pg (26-34); Mean Corpuscular Volume 89.1 fl (80-100); Mean Platelet Volume 9.9 fl (7.4-10.4); Monocytes Absolute Auto 0.7 K/mm3 (0.1-0.6); Monocytes Percent Auto 7.8 % (2.6-8.5); Neutrophils Absolute Auto 4.4 K/mm3 (1.3-6.7); Neutrophils Percent Auto 52.1 % (45.5-73.1); Platelet Count Result 332 k/mm3 (150-375); Red Blood Count 5.05 M/mm3 (4.2-5.4); Red Cell Distribution Width 13.6 % (11.5-14.5); White Blood Count 8.5 K/mm3 (4.5-10.0)
[2022-05-30 16:13] LABS: Alanine Aminotransferase 26 U/L (6-35); Albumin Level 4.7 g/dL (3.5-5.1); Alkaline Phosphatase 126 U/L (38-126); Anion Gap 10 mmol/L (8-16); Aspartate Amino Transferase 40 U/L (14-36); Bilirubin,Total 0.6 mg/dL (0.2-1.3); Blood Urea Nitrogen 14 mg/dL (7-17); Carbon Dioxide 27 mmol/L (22-30); Chloride 99 mmol/L (98-107); Estimated Glomerular Filt Rate > 60; Glucose 151 mg/dL (65-110); Lipase 158 U/L (23-300); Potassium 4.5 mmol/L (3.4-5.0); Sodium 136 mmol/L (137-145)
--- NOTE | 2022-05-30 16:30 | PC.NURSE ---
Patient states her abdominal pain has been relieved and is going home. Patient advised to return to ED if symptoms were to worsen or continue.
[2022-05-30 16:45] LABS: Appearance Urine Clear (Clear); Bilirubin Urine Negative (Negative); Blood Urine Trace-intact (Negative); Color Urine Yellow (Yellow); Glucose Urine UA Negative (Negative); Ketones Urine Negative (Negative); Leukocyte Esterase Ur 1+ LEU/UL (Negative); Nitrate Urine Negative (Negative); Protein Urine Negative (Negative); Specific Grav Ur <= 1.005 (1.001-1.035); Urobilinogen Urine 0.2 mg/dL (<2.0)
[2022-05-30 16:47] LABS: Add Urine Microscopic? YES; Mucus Urine Rare /lpf; RBC Urine 0-2 /hpf (0-2); Squamous Epithelial Cell Urine Occasional /hpf (Few); WBC Urine 21-30 /hpf
== END 2022-05-30 16:42 | disposition left against medical advice (07) ==
LOC: ANHED 16:55
PROVIDERS: Emergency Provider Emergency Medicine; PCP Physician Assistant
DX: R10.9 Unspecified abdominal pain (principal)
CPT/HCPCS: 36415; 80053; 81001; 83690; 85025; 87086; 87088; 99199

== ENCOUNTER 2022-06-01 10:14 | Outpatient (CLI) | payer MEDICARE, SELFPAY ==
--- NOTE | ~2022-06-01 | MM_ITS ---
EXAMINATION: MM screening [facility] BI w allie HISTORY: Screening mammogram TECHNIQUE: Craniocaudal and mediolateral oblique 3-D tomosynthesis images were obtained and synthetic 2-D images were generated. CAD analysis was submitted and interpreted. COMPARISON: 05/03/2021, 03/29/2020, 10/26/2018 BREAST PARENCHYMAL COMPOSITION: There are scattered areas of fibroglandular density. FINDINGS: No suspicious mass, calcification, or architectural distortion are identified in either cody ast to suggest malignancy. There has been no suspicious interval change. IMPRESSION: 1. No mammographic evidence of malignancy. 2. Recommend routine screening mammography in one year. BI-RADS Category 1: Negative Reviewed, dictated and finalized at location A. [employer]
== END 2022-06-01 10:15 | disposition home or self-care (01) ==
PROVIDERS: PCP Physician Assistant; Visit Provider Physician Assistant
DX: Z12.31 Encounter for screening mammogram for malignant neoplasm of breast (principal)
CPT/HCPCS: 77063; 77067

== ENCOUNTER 2022-06-06 00:53 | Day surgery (SDC) | payer MEDICARE, SELFPAY ==
[2022-05-28 12:39] VITALS: BMI 24.6
--- NOTE | 2022-06-05 10:28 | PM.HPGS ---
History of Present Illness History of Present Illness Consent: Risks, benefits, and alternatives have been discussed and questions answered. Patient agrees to proceed with procedure. Chief complaint: Rectal Bleeding, Colon Polyps Narrative: Debbie Enriquez is a 71 year old female who has been bothered by rectal bleeding and anal pain for the past Few months.. She was seen in the office and found to have an anal fissure. She had been prescribed nitroglycerin which she could not take because of the cost. Another compound did medication she did not take because the pharmacist advised her not to put it on any cut. She has history of having tubular adenomas removed a few years ago. She has been using hydrocortisone cream lately which gives her some relief, but she still has pain with defecation at times and still sees blood. Review of Systems Review of Systems: All systems reviewed & are unremarkable except as noted in HPI and below PMFSH Past Medical History Medical History Adenomatous colon polyp Diabetes GERD (gastroesophageal reflux disease) Glaucoma Hypercholesterolemia Hypertension Hypothyroid Pancreatic cyst Pancreatitis TIA (transient ischemic attack) Surgical History Surgical History History of esophagogastroduodenoscopy (EGD) Hx of colonoscopy Family History Family History Mother Hypertension Family history of cardiovascular disease Father Family history of cardiovascular disease Family history of Alzheimer's disease Social History Social History Smoking status: Never smoker Alcohol intake: never Substance use: never Substance use type: does not use Living arrangements: with family Spiritual care concerns: No Meds Home Medications and Allergies Home Medications Medication Instructions Recorded Confirmed Type glimepiride 2 mg tablet 2 mg PO DAILY 12/06/19 05/28/22 History metformin 500 mg tablet 500 mg PO QID 12/06/19 05/28/22 History ibuprofen 600 mg tablet 600 mg PO TID PRN pain #30 tabs 08/09/21 05/28/22 Rx levothyroxine 125 mcg tablet 112 mcg DAILY 08/09/21 05/28/22 History brimonidine 0.2 % eye drops 1 drp EACH EYE BID 08/15/21 05/28/22 History timolol maleate 0.5 % eye drops 1 drp EACH EYE BID 08/15/21 05/28/22 History diphenhydramine HCl 25 mg capsule 25 mg PO QHS 09/13/21 05/28/22 History (Benadryl) lisinopril 20 mg tablet 20 mg PO BID #60 tabs 09/13/21 05/28/22 Rx witch chuy 50 % topical pads 1 pad topical BID PRN skin 11/29/21 05/28/22 Rx (Hemorrhoidal (witch chuy)) cleansing #48 ea rosuvastatin 20 mg tablet 20 mg PO DAILY #90 tabs 03/12/22 05/28/22 Rx aspirin 81 mg tablet,delayed 81 mg PO DAILY 04/17/22 05/28/22 History release docusate sodium 50 mg capsule 100 mg PO PRN PRN Constipation 05/28/22 05/28/22 History Allergies Allergy/AdvReac Type Severity Reaction Status Date / Time ciprofloxacin Allergy Mild Nausea and Verified 06/06/22 07:26 Vomiting Sulfa (Sulfonamide Allergy Mild THRUSH Verified 06/06/22 07:26 Antibiotics) cephalexin Allergy Unknown Unknown Verified 06/06/22 07:26 CEPHALEXIN MONOHYDRATE Allergy Mild HIVES Uncoded 05/28/22 12:29 Exam Const: General: alert Orientation/consciousness: patient oriented x3 Resp: Auscultation: clear to auscultation bilaterally Cardio: Rhythm: regular rhythm GI: GI Palp: Yes Soft to palpation and No Tenderness to palpation present (GI) Neuro: General: patient oriented x3 Assessment and Plan Assessment and plan (1) Rectal bleeding: Code(s): K62.5 - Hemorrhage of anus and rectum Status: Acute Assessment and Plan: Colonoscopy with possible biopsy or polypectomy or cautery or injection of substances.
[2022-06-06 07:28] VITALS: BP 142/96; PULSE 103; RESP 18; TEMP 36.1; O2SAT 99; BMI 24.5
[2022-06-06] MEDS: LACTATED RINGERS 1,000 ML 150 ML IV CONT (07:47)
[2022-06-06 07:56] LABS: Glucose Point of Care 204 mg/dl (65-105)
--- NOTE | 2022-06-06 08:02 | WPDANESEPPF ---
Anes - Initial Pre Proc Eval Procedure: Operation Date: 06/06/22 08:30 Proposed Procedures p Colonoscopy - Raúl Angel MD Date/Time: 06/06/22 08:02 Surgeon: Raúl Angel MD Pre Op Diagnosis: Rectal Bleeding, Colon Polyps Patient Data Age: 71 Gender: F Height: 1.78 m Weight: 77.5 kg Last Vital Signs Temp 97 F L 06/06/22 07:28 Pulse 103 H 06/06/22 07:28 Resp 18 06/06/22 07:28 BP 142/96 H 06/06/22 07:28 Pulse Ox 99 06/06/22 07:28 O2 Del Method Room Air 06/06/22 07:28 Allergies Allergy/AdvReac Type Severity Reaction Status Date / Time ciprofloxacin Allergy Mild Nausea and Verified 06/06/22 07:26 Vomiting Sulfa (Sulfonamide Allergy Mild THRUSH Verified 06/06/22 07:26 Antibiotics) cephalexin Allergy Unknown Unknown Verified 06/06/22 07:26 CEPHALEXIN MONOHYDRATE Allergy Mild HIVES Uncoded 05/28/22 12:29 Home Medications Medication Instructions Recorded Confirmed Type glimepiride 2 mg tablet 2 mg PO DAILY 12/06/19 05/28/22 History metformin 500 mg tablet 500 mg PO QID 12/06/19 05/28/22 History ibuprofen 600 mg tablet 600 mg PO TID PRN pain #30 tabs 08/09/21 05/28/22 Rx levothyroxine 125 mcg tablet 112 mcg DAILY 08/09/21 05/28/22 History brimonidine 0.2 % eye drops 1 drp EACH EYE BID 08/15/21 05/28/22 History timolol maleate 0.5 % eye drops 1 drp EACH EYE BID 08/15/21 05/28/22 History diphenhydramine HCl 25 mg capsule 25 mg PO QHS 09/13/21 05/28/22 History (Benadryl) lisinopril 20 mg tablet 20 mg PO BID #60 tabs 09/13/21 05/28/22 Rx witch chuy 50 % topical pads 1 pad topical BID PRN skin 11/29/21 05/28/22 Rx (Hemorrhoidal (witch chuy)) cleansing #48 ea rosuvastatin 20 mg tablet 20 mg PO DAILY #90 tabs 03/12/22 05/28/22 Rx aspirin 81 mg tablet,delayed 81 mg PO DAILY 04/17/22 05/28/22 History release docusate sodium 50 mg capsule 100 mg PO PRN PRN Constipation 05/28/22 05/28/22 History Laboratory Tests 06/06/22 07:45 POC Capillary Glucose 204 mg/dl H mg/dl (65-105) Patient hx anesthesia problems: none Family hx anesthesia problems: none Results Review: All pre-operative results and documents have been reviewed as part of the pre-operative evaluation. [facility] Past Medical History Medical History Adenomatous colon polyp Diabetes GERD (gastroesophageal reflux disease) Glaucoma Hypercholesterolemia Hypertension Hypothyroid Pancreatic cyst Pancreatitis TIA (transient ischemic attack) Surgical History Surgical History History of esophagogastroduodenoscopy (EGD) Hx of colonoscopy Family History Family History Mother Hypertension Family history of cardiovascular disease Father Family history of cardiovascular disease Family history of Alzheimer's disease Social History Social History Smoking status: Never smoker Alcohol intake: never Substance use: never Substance use type: does not use Living arrangements: with family Spiritual care concerns: No Anes - Eval Final PreProcedure Day of Procedure 06/06/22 08:02 Patient weight: normal Heart: regular rate and rhythm Lungs: clear to auscultation Airway: Mallampati scale class II Neurological: alert and oriented Last oral intake: >/= 8 hours ASA classification: III Emergent: no Anesthetic plan: proceed Anesthesia type and monitoring: general GIVS and standard monitoring Results Review: All pre-operative results and documents have been reviewed as part of the pre-operative evaluation. Informed Consent: The patient's anesthetic plan and its attendant risks and benefits were discussed with the patient/family/POA. Questions were solicited and answers provided to the satisfaction of the patient/family/POA.
[2022-06-06 08:45] VITALS: BP 88/48; PULSE 85; RESP 20; O2SAT 98
[2022-06-06 08:55] VITALS: BP 104/54; PULSE 88; RESP 19; O2SAT 100
[2022-06-06 09:05] VITALS: BP 106/56; PULSE 85; RESP 20; O2SAT 100
== END 2022-06-06 09:29 | disposition home or self-care (01) ==
PROVIDERS: PCP Physician Assistant; Visit Provider Internal Medicine Gastroenterology
PROC: 0DJD8ZZ Inspection of Lower Intestinal Tract, Via Natural or Artificial Opening Endoscopic (ICD-10-PCS; CPT 45378; principal; 2022-06-06 08:30)
DX: K62.5 Hemorrhage of anus and rectum (principal); K60.2 Anal fissure, unspecified; K64.8 Other hemorrhoids; E11.9 Type 2 diabetes mellitus without complications; K21.9 Gastro-esophageal reflux disease without esophagitis; E78.00 Pure hypercholesterolemia, unspecified; I10 Essential (primary) hypertension; E03.9 Hypothyroidism, unspecified; H40.9 Unspecified glaucoma; Z86.010 Personal history of colon polyps; Z86.73 Personal history of transient ischemic attack (TIA), and cerebral infarction without residual deficits
CPT/HCPCS: 45378; 82948; J2704; J7120

== ENCOUNTER 2022-06-19 10:50 | Emergency (ER) | payer MEDICARE, SELFPAY ==
[2022-06-19 10:56] VITALS: BP 145/76; PULSE 113; RESP 18; TEMP 37.1; O2SAT 99
--- NOTE | 2022-06-19 11:34 | ED.URI ---
HPI - URI/Sore Throat General Chief Complaint: Upper Respiratory Infection Stated Complaint: cough/flu sx Time Seen by Provider: 06/19/22 11:05 Source: patient Mode of arrival: ambulatory Limitations: no limitations History of Present Illness HPI Narrative: Debbie is a 71-year-old female patient presenting to the clinic today with complaints of cough, throat irritation, nasal congestion, and chest congestion x 3-4 days. She reports that she has noted that she has been wheezing at night time. She denies any fever or chills. She is bringing up some clear phlegm. States her had similar symptoms for approximately 2 weeks. She is concerned that she may have the flu. MD elicited complaint: cough, sore throat, rhinorrhea and nasal congestion Related Data Home Medications Medication Instructions Recorded Confirmed glimepiride 2 mg tablet 2 mg PO DAILY 12/06/19 05/28/22 metformin 500 mg tablet 500 mg PO QID 12/06/19 05/28/22 levothyroxine 125 mcg tablet 112 mcg DAILY 08/09/21 05/28/22 brimonidine 0.2 % eye drops 1 drp EACH EYE BID 08/15/21 05/28/22 timolol maleate 0.5 % eye drops 1 drp EACH EYE BID 08/15/21 05/28/22 diphenhydramine HCl 25 mg capsule 25 mg PO QHS 09/13/21 05/28/22 (Benadryl) aspirin 81 mg tablet,delayed 81 mg PO DAILY 04/17/22 05/28/22 release docusate sodium 50 mg capsule 100 mg PO PRN PRN Constipation 05/28/22 05/28/22 clindamycin HCl 75 mg capsule mg 06/19/22 Allergies Allergy/AdvReac Type Severity Reaction Status Date / Time ciprofloxacin Allergy Mild Nausea and Verified 06/19/22 11:10 Vomiting Sulfa (Sulfonamide Allergy Mild THRUSH Verified 06/19/22 11:10 Antibiotics) cephalexin Allergy Unknown Unknown Verified 06/19/22 11:10 CEPHALEXIN MONOHYDRATE Allergy Mild HIVES Uncoded 06/19/22 11:10 Review of Systems Review of Systems: Pertinent positives per HPI. Patient denies any fever, chills, rash, headache, visual changes, dizziness, shortness of breath, chest pain, palpitations, nausea, vomiting, diarrhea, constipation, abdominal pain, or any urinary issues. [facility] Past Medical History Medical History Adenomatous colon polyp Diabetes GERD (gastroesophageal reflux disease) Glaucoma Hypercholesterolemia Hypertension Hypothyroid Pancreatic cyst Pancreatitis TIA (transient ischemic attack) Surgical History Surgical History History of esophagogastroduodenoscopy (EGD) Hx of colonoscopy Family History Family History Mother Hypertension Family history of cardiovascular disease Father Family history of cardiovascular disease Family history of Alzheimer's disease Social History Social History Smoking status: Never smoker Alcohol intake: never Substance use: never Substance use type: does not use Spiritual care concerns: No Comments At the time of my signature, I reviewed and agree with the nursing past medical, surgical, social, and family history. There is no relevant family history pertinent to the patient complaint. Exam Narrative: General: Well-developed, well nourished, in no apparent distress Head: Normocephalic, atraumatic Eyes: Pupils equally round and reactive to light bilaterally, EOM intact, sclera and conjunctive clear, no discharge, lids normal Ears: TMs intact and clear, ear canals clear, no drainage, grossly hearing normal. Nose: Nares patent, clear nasal discharge, moderate inflammation, no sinus tenderness. Mouth: Oral pharynx without lesions or masses, good dentition, MMM. oropharynx red, postnasal drip Neck: Supple, trachea midline, no enlargement of anterior or posterior cervical nodes, no thyroid masses or goiter palpable. Cardio: Regular rate and rhythm, s1 and s2 normal, no murmur chris
== END 2022-06-19 11:42 | disposition home or self-care (01) ==
PROVIDERS: Emergency Provider Nurse Practitioner Family
DX: J06.9 Acute upper respiratory infection, unspecified (principal); Z20.822 Contact with and (suspected) exposure to COVID-19; E78.00 Pure hypercholesterolemia, unspecified; I10 Essential (primary) hypertension; E03.9 Hypothyroidism, unspecified; E11.39 Type 2 diabetes mellitus with other diabetic ophthalmic complication; H42 Glaucoma in diseases classified elsewhere; Z79.84 Long term (current) use of oral hypoglycemic drugs; Z86.73 Personal history of transient ischemic attack (TIA), and cerebral infarction without residual deficits
CPT/HCPCS: 87426; 99213; C9803; G0463

== ENCOUNTER 2022-06-26 15:38 | Emergency (ER) | payer MEDICARE, SELFPAY ==
--- NOTE | ~2022-06-26 | XR_ITS ---
EXAMINATION: XR chest 2V DATE: 06/26/2022 17:24 INDICATION: 2 weeks of cough TECHNIQUE: PA and lateral views of the chest were obtained. COMPARISON: Chest radiograph dated 11/14/2006 FINDINGS: Linear band of discoid atelectasis at the anterior left lung base on the lateral projection, likely a long the left major fissure. No other airspace opacities, pulmonary edema, pleural effusion or pneumo thorax. The cardiomediastinal silhouette is normal. Mild thoracic dextrocurvature with moderate to se frederick spondylosis. IMPRESSION: 1. Mild discoid atelectasis at the anterior left lung base. No other acute cardiopulmonary disease. Reviewed, dictated and finalized at location A. WELDER IMPRESSION: 1. Mild discoid atelectasis at the anterior left lung base. No other acute card iopulmonary disease.
[2022-06-26 16:16] VITALS: BP 172/88; PULSE 116; RESP 20; TEMP 36.6; O2SAT 96
--- NOTE | 2022-06-26 18:40 | PC.NURSE ---
RT notified of breathing treatment.
[2022-06-26 18:50] VITALS: PULSE 111; RESP 18
--- NOTE | 2022-06-26 18:51 | ED.URI ---
HPI - URI/Sore Throat General Chief Complaint: Upper Respiratory Infection Stated Complaint: COUGH X2WKS Time Seen by Provider: 06/26/22 16:58 History of Present Illness HPI Narrative: 71-year-old female with hypertension diabetes, GERD, hypothyroidism and hypercholesterolemia presents to the emergency room for evaluation of a productive cough, sinus congestion and wheezing for 2 weeks. States symptoms are worse at night. Denies fevers or difficulty breathing. Patient states that she was seen in urgent care 5 days ago and was given a 5-day course of prednisone. States no improvement of her symptoms since completing the steroids. Patient is also been taking Mucinex DM. Related Data Home Medications Medication Instructions Recorded Confirmed glimepiride 2 mg tablet 2 mg PO DAILY 12/06/19 05/28/22 metformin 500 mg tablet 500 mg PO QID 12/06/19 05/28/22 levothyroxine 125 mcg tablet 112 mcg DAILY 08/09/21 05/28/22 brimonidine 0.2 % eye drops 1 drp EACH EYE BID 08/15/21 05/28/22 timolol maleate 0.5 % eye drops 1 drp EACH EYE BID 08/15/21 05/28/22 diphenhydramine HCl 25 mg capsule 25 mg PO QHS 09/13/21 05/28/22 (Benadryl) aspirin 81 mg tablet,delayed 81 mg PO DAILY 04/17/22 05/28/22 release docusate sodium 50 mg capsule 100 mg PO PRN PRN Constipation 05/28/22 05/28/22 clindamycin HCl 75 mg capsule mg 06/19/22 Allergies Allergy/AdvReac Type Severity Reaction Status Date / Time ciprofloxacin Allergy Mild Nausea and Verified 06/26/22 16:44 Vomiting Sulfa (Sulfonamide Allergy Mild THRUSH Verified 06/26/22 16:44 Antibiotics) cephalexin Allergy Unknown Unknown Verified 06/26/22 16:44 CEPHALEXIN MONOHYDRATE Allergy Mild HIVES Uncoded 06/26/22 16:44 Review of Systems Review of Systems: CONSTITUTIONAL: Denies fever, chills, or sweats. EYES: Denies visual changes, redness, or discharge. ENT: Reports sinus congestion, postnasal drip CARDIOVASCULAR: Denies chest pain, palpitations, or edema. RESPIRATORY: Reports cough GASTROINTESTINAL: Denies abdominal pain, nausea, vomiting, or diarrhea. GENITOURINARY: Denies dysuria or hematuria. SKIN: Denies rash or itching. MUSCULOSKELETAL: Denies back pain, joint pain, or myalgia. NEUROLOGIC: Denies headache, numbness, dizziness, or weakness. PSYCHIATRIC: Denies anxiety or depression. [facility] Past Medical History Medical History Adenomatous colon polyp Diabetes GERD (gastroesophageal reflux disease) Glaucoma Hypercholesterolemia Hypertension Hypothyroid Pancreatic cyst Pancreatitis TIA (transient ischemic attack) Surgical History Surgical History History of esophagogastroduodenoscopy (EGD) Hx of colonoscopy Family History Family History Mother Hypertension Family history of cardiovascular disease Father Family history of cardiovascular disease Family history of Alzheimer's disease Social History Social History Smoking status: Never smoker Alcohol intake: never Substance use: never Substance use type: does not use Spiritual care concerns: No Exam Narrative: GENERAL: Well-appearing, well-nourished, no physical limitations, and in no acute distress. HEAD: Normocephalic, atraumatic. Tenderness over the frontal sinuses EYES: Conjunctivae normal, PERRLA and EOMI. ENT: External nose normal, Nares clear, no rhinorrhea or epistaxis. Mucous membranes moist. Oropharynx without tonsillar hypertrophy exudate or other lesions. External ears normal, bilateral TMs normal bilaterally NECK: Supple. No adenopathy or masses. CHEST: Expiratory wheezes at bases no respiratory distress. No tenderness. HEART: Regular rate and rhythm. No murmur heard. Normal peripheral pulses. EXTREMITIES: Normal range of motion. No edema. No clubbing or cyanosis SK
[2022-06-26] MEDS: IPRATROPIUM BR 0.02% INH SOLN 0.5 MG/2.5 ML VIAL INHALATION (18:54)
[2022-06-26] MEDS: ALBUTEROL SULFATE NEB 2.5 MG/3 ML INH INHALATION (18:55)
[2022-06-26 19:03] VITALS: PULSE 105; RESP 18
--- NOTE | 2022-06-26 19:14 | PC.NURSE ---
Patient report given to TAMIKA Coronado. All questions answered and care of patient transferred.
[2022-06-26 20:02] VITALS: O2SAT 98
== END 2022-06-26 20:03 | disposition home or self-care (01) ==
PROVIDERS: Emergency Provider Nurse Practitioner Family; PCP Physician Assistant
DX: J06.9 Acute upper respiratory infection, unspecified (principal); I10 Essential (primary) hypertension; E11.39 Type 2 diabetes mellitus with other diabetic ophthalmic complication; H42 Glaucoma in diseases classified elsewhere; E78.00 Pure hypercholesterolemia, unspecified; E03.9 Hypothyroidism, unspecified; K21.9 Gastro-esophageal reflux disease without esophagitis; Z86.010 Personal history of colon polyps; Z86.73 Personal history of transient ischemic attack (TIA), and cerebral infarction without residual deficits; Z79.84 Long term (current) use of oral hypoglycemic drugs; Z79.82 Long term (current) use of aspirin
CPT/HCPCS: 71046; 94640; 99283

== ENCOUNTER 2022-11-18 09:07 | Emergency (ER) | payer MEDICARE, SELFPAY ==
--- NOTE | ~2022-11-18 | CT_ITS ---
EXAMINATION: CT lumbar spine wo con DATE: 11/18/2022 09:40 INDICATION: Left-sided low back pain. TECHNIQUE: Computed tomography (CT) of the lumbar spine was performed without intravenous contrast. A utomated exposure control and iterative reconstruction technique were employed. The dose-length produ ct was 1372.09 mGy-cm. COMPARISON: CT lumbar spine 08/15/2021 FINDINGS: Calcifications in the liver and spleen are consistent with old granulomatous disease. There is diverticulosis of the colon without evidence of diverticulitis. There is 25 degrees levoscoliosis of thoracolumbar spine. There is mild chronic anterior wedging of T11 vertebral body. There are brid ging endplate osteophytes from T10 to L3. There is fusion of the facet joints and spinous processes f rom T10 to L2. There is severely decreased disc height from L3-L4 through L5-S1 with endplate remodel ing. The following disc levels are specifically discussed: L1-L2: The disc does not extend beyond the endplate margin. There is mild bilateral facet joint hyper trophy. There is no neural foraminal stenosis. There is no central canal stenosis. L2-L3: The disc does not extend beyond the endplate margin. There is mild bilateral facet joint osteo arthritis. There is mild right neural foraminal stenosis. There is no central canal stenosis. L3-L4: The disc is bulging. There is severe bilateral facet joint osteoarthritis. There is moderate r ight and mild left neural foraminal stenosis. There is mild central canal stenosis. L4-L5: The disc is bulging. There is severe bilateral facet joint osteoarthritis. There is mild right and moderate left neural foraminal stenosis. There is mild central canal stenosis. L5-S1: The disc is bulging. There is severe bilateral facet joint osteoarthritis. There is mild bilat eral neural foraminal stenosis. There is mild central canal stenosis. IMPRESSION: 1. Severe lumbar spondylosis. 2. Thoracic lumbar levoscoliosis. 3. Diffuse idiopathic skeletal hyperostosis (DISH). Reviewed, dictated and finalized at location A.
[2022-11-18 09:09] VITALS: BP 149/96; PULSE 110; RESP 18; TEMP 36.4; O2SAT 99
--- NOTE | 2022-11-18 09:14 | ED.BACK ---
HPI - Back Pain/Injury General Chief Complaint: Back Pain/Injury Stated Complaint: lower left backache x 3 days Time Seen by Provider: 11/18/22 09:12 Source: patient Mode of arrival: ambulatory Limitations: no limitations History of Present Illness HPI Narrative: Patient is a 72 y/o female who presents to the ED with c/o L lower back pain. Patient reports a history of ankylosing spondylitis for which she sees pain management. She reports 3 days ago she twisted to take her dog's leash off and felt a twinge in her left lower back. She has had constant pain in her left lower back going into her left buttock since then, with intermittent spasms. She has been taking ibuprofen, Tylenol and took a tramadol this morning without relief. Pain worse with movement, walking, sitting. Unable to find any relief. She denies any weakness of lower extremities, saddle anesthesia, bowel or bladder incontinence, urinary retention, dysuria, hematuria, abdominal pain, fevers. Patient denies any recent fall or injury, but does report that she fell 3 weeks ago and landed on her left side. She does not think she injured anything from the fall. Did not have any pain initially after the fall. Related Data Home Medications Medication Instructions Recorded Confirmed glimepiride 2 mg tablet 2 mg PO DAILY 12/06/19 10/11/22 metformin 500 mg tablet 500 mg PO QID 12/06/19 10/11/22 levothyroxine 125 mcg tablet 112 mcg DAILY 08/09/21 10/11/22 brimonidine 0.2 % eye drops 1 drp EACH EYE BID 08/15/21 10/11/22 timolol maleate 0.5 % eye drops 1 drp EACH EYE BID 08/15/21 10/11/22 diphenhydramine HCl 25 mg capsule 25 mg PO QHS 09/13/21 10/11/22 (Benadryl) aspirin 81 mg tablet,delayed 81 mg PO DAILY 04/17/22 10/11/22 release docusate sodium 50 mg capsule 100 mg PO PRN PRN Constipation 05/28/22 10/11/22 clindamycin HCl 75 mg capsule mg 06/19/22 10/11/22 Allergies Allergy/AdvReac Type Severity Reaction Status Date / Time cephalexin Allergy Mild Hives Verified 11/18/22 09:26 Sulfa (Sulfonamide Allergy Mild THRUSH Verified 11/18/22 09:18 Antibiotics) ciprofloxacin AdvReac Mild Nausea and Verified 11/18/22 09:27 Vomiting Review of Systems Review of Systems: CONSTITUTIONAL: Denies fever, chills, or sweats. CARDIOVASCULAR: Denies chest pain. RESPIRATORY: Denies dyspnea. GASTROINTESTINAL: Denies abdominal pain, nausea, vomiting, incontinence. GENITOURINARY: Denies incontinence, retention, dysuria or hematuria. MUSCULOSKELETAL: See HPI. NEUROLOGIC: See HPI. All systems reviewed & are unremarkable except as noted in HPI and below PMFSH Past Medical History Medical History Adenomatous colon polyp Ankylosing spondylitis Diabetes GERD (gastroesophageal reflux disease) Glaucoma Hypercholesterolemia Hypertension Hypothyroid Pancreatic cyst Pancreatitis TIA (transient ischemic attack) Surgical History Surgical History History of esophagogastroduodenoscopy (EGD) Hx of colonoscopy Family History Family History Mother Hypertension Family history of cardiovascular disease Father Family history of cardiovascular disease Family history of Alzheimer's disease Social History Social History Smoking status: Never smoker Alcohol intake: never Substance use: never Substance use type: does not use Living arrangements: with family Spiritual care concerns: No Exam Narrative: GENERAL: Uncomfortable appearing, well-nourished, non-toxic, in mild acute distress due to pain. HEAD: Normocephalic, atraumatic. NECK: Supple. No adenopathy, no masses. RESPIRATORY: Airway patent, respirations nonlabored. Clear to auscultation bilaterally, no rales, rhonchi, wheezing. CARDIOVASCULAR: Borderline tachycardic wi
[2022-11-18] MEDS: KETOROLAC 15 MG/ML VIAL (*BKC) IV PUSH (09:54)
[2022-11-18] MEDS: ACETAMINOPHEN 500 MG TABLET 1000 MG PO (09:54)
[2022-11-18] MEDS: diazePAM INJ (*CRX) 10 MG/2 ML SYRINGE 2 MG IV PUSH (09:56)
[2022-11-18 10:04] VITALS: BP 163/90; PULSE 93; RESP 18; O2SAT 96
[2022-11-18] MEDS: CYCLOBENZAPRINE HCL 5 MG TABLET PO (12:04)
[2022-11-18] MEDS: methylPREDNISolone SOD SUCC 125 MG VIAL IV PUSH (12:04)
[2022-11-18 12:39] LABS: Strep Group A RT-PCR NOT DETECTED (Negative)
[2022-11-18 12:50] LABS: Influenza A QL RT-PCR Negative (Negative); Influenza B QL RT-PCR Negative (Negative); SARS-CoV-2 RNA PCR Negative (Negative)
[2022-11-18 13:55] VITALS: BP 168/81; PULSE 86; RESP 18; O2SAT 99
== END 2022-11-18 13:57 | disposition home or self-care (01) ==
PROVIDERS: Emergency Provider Physician Assistant; PCP Physician Assistant
DX: S39.012A Strain of muscle, fascia and tendon of lower back, initial encounter (principal); M54.16 Radiculopathy, lumbar region; M47.816 Spondylosis without myelopathy or radiculopathy, lumbar region; Z20.822 Contact with and (suspected) exposure to COVID-19; E11.9 Type 2 diabetes mellitus without complications; K21.9 Gastro-esophageal reflux disease without esophagitis; I10 Essential (primary) hypertension; E03.9 Hypothyroidism, unspecified; X50.0XXA Overexertion from strenuous movement or load, initial encounter
CPT/HCPCS: 72131; 87636; 87651; 96374; 96375; 99284; A9270; J1885; J2930; J3360

== ENCOUNTER 2022-12-22 14:52 | Emergency (ER) | payer MEDICARE, SELFPAY ==
[2022-12-22] VITALS (9 sets, daily range): BP systolic 115–165; BP diastolic 72–89; PULSE 102–118; RESP 13–26; TEMP 37.4; O2SAT 94–97
--- NOTE | ~2022-12-22 | XR_ITS ---
Clinical Indication: Shortness of breath AP and lateral views of the chest: Comparison: 06/18/2022 Findings: The lungs are clear, without evidence of focal consolidation or pleural effusion. Cardiome diastinal silhouette is within normal limits. Bones and soft tissues are unremarkable. Impression: Normal chest. Reviewed, dictated and finalized at location . Impression: Normal chest.
--- NOTE | 2022-12-22 14:59 | ECG_ITS ---
Measurements Intervals [place] Rate: 119 P: 14 WV: 163 QRS: -74 QRSD: 122 T: 79 QT: 329 QTc: 463 Interpretive Statements SINUS TACHYCARDIA RIGHT BUNDLE BRANCH BLOCK [120+ ms QRS DURATION, UPRIGHT V1, 40+ ms S IN I/aVL/V4/V5/V6] LEFT VENTRICULAR HYPERTROPHY AND ST-T CHANGE [VOLTAGE CRITERIA PLUS ST/T ABNORMALITY] INFERIOR MYOCARDIAL INFARCTION , POSSIBLY ACUTE [40+ ms Q WAVE AND/OR ST/T ABNORMALITY IN II/aVF] ANTEROLATERAL MYOCARDIAL INFARCTION, AGE UNDETERMINED ABNORMAL EKG COMPARED TO ECG 11/29/2021 10:30:27 LEFT VENTRICULAR HYPERTROPHY NOW PRESENT ST (T WAVE) DEVIATION NOW PRESENT Electronically Signed On 12-23-2022 10:36:42 CDT by Brennen Quach M.D.
[2022-12-22 15:30] LABS: Basophils Absolute Auto 0.1 K/mm3 (0.0-0.1); Basophils Percent Auto 0.5 % (0.2-1.2); Eosinophils Percent Auto 0.4 % (0-4.4); Hematocrit 42.7 % (37.0-47.0); Hemoglobin 14.1 g/dL (12.0-15.0); Immature Granulocyte Absolute 0.02 K/mm3 (0.00-0.031); Immature Granulocyte Percent A 0.2 % (0-0.5); Lymphocytes Percent Auto 6.6 % (18.3-44.2); Mean Corpuscular Hemoglobin 29.6 pg (26-34); Mean Corpuscular Volume 89.5 fl (80-100); Mean Platelet Volume 9.9 fl (7.4-10.4); Monocytes Percent Auto 9.5 % (2.6-8.5); Neutrophils Absolute Auto 8.8 K/mm3 (1.3-6.7); Neutrophils Percent Auto 82.8 % (45.5-73.1); Platelet Count Result 219 k/mm3 (150-375); Red Blood Count 4.77 M/mm3 (4.2-5.4); Red Cell Distribution Width 13.4 % (11.5-14.5); White Blood Count 10.6 K/mm3 (4.5-10.0)
[2022-12-22 15:40] LABS: Alanine Aminotransferase 28 U/L (6-35); Albumin Level 4.5 g/dL (3.5-5.1); Alkaline Phosphatase 134 U/L (38-126); Anion Gap 11 mmol/L (8-16); Aspartate Amino Transferase 48 U/L (14-36); Bilirubin,Total 0.9 mg/dL (0.2-1.3); Blood Urea Nitrogen 9 mg/dL (7-17); Calcium 9.7 mg/dL (8.4-10.2); Carbon Dioxide 23 mmol/L (22-30); Chloride 100 mmol/L (98-107); Estimated CRCL calculation 78 ml/min; Estimated Glomerular Filt Rate > 60; Glucose 135 mg/dL (65-110); Sodium 134 mmol/L (137-145)
[2022-12-22 16:05] LABS: SARS-CoV-2 RNA PCR Positive (Negative)
[2022-12-22] MEDS: SODIUM CHLORIDE 0.9% IV 1,000 ML 999 ML IV CONT (16:29)
[2022-12-22] MEDS: IBUPROFEN IV 800 MG/200 ML 800 MG/200 ML BAG 400 MG IVPB (16:30)
[2022-12-22 16:32] LABS: Lactic Acid Reflex 0.9 mmol/L (0.7-2.0)
[2022-12-22 16:33] LABS: INR 0.9; Prothrombin Time 12.9 Seconds (11.1-14.7)
[2022-12-22 16:34] LABS: Partial Thromboplastin Time 29.1 SECONDS (22.3-36.8)
[2022-12-22 16:40] LABS: D Dimer 0.46 ug/mL (<0.48)
[2022-12-22 16:44] LABS: NT Pro B Type Natriuretic Pept 472 pg/mL (19.9-100); Troponin I < 0.012 ng/mL (0.000-0.034)
--- NOTE | 2022-12-22 17:03 | ED.SOB ---
HPI - SOB/Dyspnea General Chief Complaint: Shortness of Breath/Dyspnea Stated Complaint: COVID+, weak, dry scratchy throat Time Seen by Provider: 12/22/22 15:34 Source: patient and RN notes reviewed Mode of arrival: ambulatory Limitations: no limitations History of Present Illness HPI Narrative: This is a 72 year old female who presents for evaluation of weakness for 2 days. She reports cough and weakness starting on Friday. She reports nausea and emesis 2 days ago. She denies chest pain, fever. She is reporting weakness and her had to help her out of bed today. She reports shortness of breath getting out of bed, but denies shortness of breath walking to the bathroom. Her was evaluated yesterday in ER and he was found to be positive for covid. PAtient states she tested positive yesterday. Related Data Home Medications Medication Instructions Recorded Confirmed glimepiride 2 mg tablet 2 mg PO DAILY 12/06/19 10/11/22 metformin 500 mg tablet 500 mg PO QID 12/06/19 10/11/22 levothyroxine 125 mcg tablet 112 mcg DAILY 08/09/21 10/11/22 brimonidine 0.2 % eye drops 1 drp EACH EYE BID 08/15/21 10/11/22 timolol maleate 0.5 % eye drops 1 drp EACH EYE BID 08/15/21 10/11/22 diphenhydramine HCl 25 mg capsule 25 mg PO QHS 09/13/21 10/11/22 (Benadryl) aspirin 81 mg tablet,delayed 81 mg PO DAILY 04/17/22 10/11/22 release docusate sodium 50 mg capsule 100 mg PO PRN PRN Constipation 05/28/22 10/11/22 clindamycin HCl 75 mg capsule mg 06/19/22 10/11/22 Allergies Allergy/AdvReac Type Severity Reaction Status Date / Time cephalexin Allergy Mild Hives Verified 11/18/22 09:26 Sulfa (Sulfonamide Allergy Mild THRUSH Verified 11/18/22 09:18 Antibiotics) ciprofloxacin AdvReac Mild Nausea and Verified 11/18/22 09:27 Vomiting Review of Systems Constitutional: Constitutional: Reports fatigue and Reports weakness ENT: Reports sore throat Cardiovascular: Cardiovascular: Denies syncope, Denies rapid heart rate, Denies irregular heart rhythm, Denies leg edema and Reports dyspnea Respiratory: Respiratory: Denies chest congestion, Reports cough, Denies hemoptysis, Denies excessive phlegm production and Reports dyspnea Gastrointestinal: Gastrointestinal: Denies abdominal pain, Denies hematochezia, Denies diarrhea, Reports nausea and Reports vomiting Genitourinary: Genitourinary: Denies hematuria and Denies dysuria Musculoskeletal: Musculoskeletal: Denies joint swelling, Denies loss of height and Denies muscle weakness Neurologic: Denies syncope, Denies focal weakness and Denies weakness PMFSH Past Medical History Medical History Adenomatous colon polyp Ankylosing spondylitis Diabetes GERD (gastroesophageal reflux disease) Glaucoma Hypercholesterolemia Hypertension Hypothyroid Pancreatic cyst Pancreatitis TIA (transient ischemic attack) Surgical History Surgical History History of esophagogastroduodenoscopy (EGD) Hx of colonoscopy Family History Family History Mother Hypertension Family history of cardiovascular disease Father Family history of cardiovascular disease Family history of Alzheimer's disease Social History Social History Smoking status: Never smoker Alcohol intake: never Substance use: never Substance use type: does not use Living arrangements: with family Spiritual care concerns: No Exam Const: General: no acute distress Nutritional Appearance: well nourished Orientation/consciousness: patient oriented x3 HENMT: Head: normal to inspection Mouth: Yes Normal oral and palatal mucosa present, Yes lip normal and Yes moist mucous membranes Throat: posterior oropharynx normal Eyes: Pupils: Equal, round and reactive pupils present EOM: EOMs int
[2022-12-22 17:59] LABS: Appearance Urine Clear (Clear); Bacteria Urine None Seen /hpf; Bilirubin Urine Negative (Negative); Blood Urine Negative (Negative); Color Urine Yellow (Yellow); Glucose Urine UA Negative (Negative); Ketones Urine 1+ mg/dL (Negative); Leukocyte Esterase Ur Trace LEU/UL (Negative); Nitrate Urine Negative (Negative); Non Pathogenic Casts 0-2; Protein Urine Negative (Negative); RBC Urine 0-2 /hpf (0-2); Specific Grav Ur 1.005 (1.001-1.035); Squamous Epithelial Cell Urine None seen /hpf (Few); Urobilinogen Urine 0.2 mg/dL (<2.0); WBC Urine 0-5 /hpf; pH Urine 6.5 (5.0-9.0)
[2022-12-22 18:01] LABS: Add Urine Microscopic? YES
== END 2022-12-22 19:08 | disposition home or self-care (01) ==
PROVIDERS: Preventive Medicine Aerospace Medicine; Emergency Provider General Practice; PCP Physician Assistant
DX: U07.1 COVID-19 (principal); R06.02 Shortness of breath; E11.39 Type 2 diabetes mellitus with other diabetic ophthalmic complication; H42 Glaucoma in diseases classified elsewhere; E78.00 Pure hypercholesterolemia, unspecified; I10 Essential (primary) hypertension; E03.9 Hypothyroidism, unspecified; K21.9 Gastro-esophageal reflux disease without esophagitis; Z86.73 Personal history of transient ischemic attack (TIA), and cerebral infarction without residual deficits; Z86.010 Personal history of colon polyps; Z79.82 Long term (current) use of aspirin; Z79.84 Long term (current) use of oral hypoglycemic drugs; R00.0 Tachycardia, unspecified; I45.10 Unspecified right bundle-branch block; I51.7 Cardiomegaly; R94.31 Abnormal electrocardiogram [ECG] [EKG]
CPT/HCPCS: 36415; 71046; 80053; 81001; 83605; 83880; 84484; 85025; 85380; 85610; 85730; 87635; 93005; 96365; 99284; J1741; J7030

== ENCOUNTER 2023-06-03 10:09 | Outpatient (CLI) | payer MEDICARE, SELFPAY ==
--- NOTE | ~2023-06-03 | MM_ITS ---
EXAMINATION: MM screening [facility] BI w allie HISTORY: Screening mammogram TECHNIQUE: Craniocaudal and mediolateral oblique 3-D tomosynthesis images were obtained and synthetic 2-D images were generated. CAD analysis was submitted and interpreted. COMPARISON: 06/01/2022, 05/03/2021, 03/29/2020 BREAST PARENCHYMAL COMPOSITION: There are scattered areas of fibroglandular density. FINDINGS: No suspicious mass, calcification, or architectural distortion are identified in either cody ast to suggest malignancy. There has been no suspicious interval change. IMPRESSION: 1. No mammographic evidence of malignancy. 2. Recommend routine screening mammography in one year. BI-RADS Category 1: Negative Reviewed, dictated and finalized at location A. HOUSE HANDLER
== END 2023-06-03 10:10 | disposition home or self-care (01) ==
PROVIDERS: PCP Physician Assistant; Visit Provider Physician Assistant
DX: Z12.31 Encounter for screening mammogram for malignant neoplasm of breast (principal)
CPT/HCPCS: 77063; 77067

== ENCOUNTER 2023-08-28 12:39 | Observation (INO) | payer MEDICARE, SELFPAY ==
[2023-08-28] VITALS (21 sets, daily range): BP systolic 115–159; BP diastolic 64–89; PULSE 91–113; RESP 13–19; TEMP 36.4–36.9; O2SAT 95–100; BMI 29.2
--- NOTE | ~2023-08-28 | MR_ITS ---
MRI of the brain Clinical History: Left CVA Technique: Axial and sagittal T1-weighted images were acquired. These were followed by axial T2-weigh mariano, diffusion weighted, gradient, and FLAIR images. Findings: There is focal restricted diffusion in the high left parietal lobe, compatible with acute i nfarct. Chronic right cerebellar infarct noted. There is minimal chronic microvascular ischemic quiroz e in the periventricular white matter. No intracranial hemorrhage or mass lesion seen. Ventricles and subarachnoid spaces are unremarkable. Orbits are unremarkable. Paranasal sinuses and m astoid air cells are clear. Major intracranial flow voids are intact. Sagittal midline structures are intact. IMPRESSION: Small acute wedge-shaped infarct in the high left parietal lobe. Focal chronic infarct in the right cerebellum. No intracranial hemorrhage. Reviewed, dictated and finalized at location M. ET RIPPER
--- NOTE | ~2023-08-28 | CT_ITS ---
EXAMINATION: CTA brain carotid DATE: 08/28/2023 17:22 INDICATION: Expressive aphasia. TECHNIQUE: Computed tomographic angiography (CTA) of the head was performed with 100 mL Omnipaque-350 intravenous contrast. CTA of the neck was performed with intravenous contrast. Automated exposure co ntrol and iterative reconstruction technique were employed. The dose-length product was 1011.28 mGy-c m. Maximum intensity projection and volume rendered 3D-reconstructions were created by the [employer]oget[employer] st on a separate workstation. COMPARISON: Head CT 08/28/2023 FINDINGS: HEAD CTA: There is an old infarct in right cerebellum. There are scattered areas of low attenuation i n the cerebral white matter. There is no intracranial hemorrhage, acute infarction, or abnormal intra cranial mass lesion. The ventricles are normal in size. The orbits are normal. There is mild mucosal thickening in the paranasal sinuses. The mastoid air cells are normal. Left vertebral artery is domin ant. There is no significant stenosis of basilar artery or the posterior cerebral arteries. The poste rior communicating arteries are normal. There is no significant stenosis of the intracranial internal carotid arteries or anterior or middle cerebral arteries. Anterior communicating artery is normal. T here is no aneurysm. NECK CTA: There are no pathologically enlarged lymph nodes. Left vertebral artery is dominant. There is mild plaque in the proximal internal carotid arteries. There is 0% stenosis of the proximal right internal carotid artery relative to normal distal artery lumen diameter (NASCET criteria). There is 0 % stenosis of the proximal left internal carotid artery relative to normal distal artery lumen diamet er. There is moderate cervical spondylosis. IMPRESSION: 1. Old infarct in the right cerebellum. 2. Moderate nonspecific cerebral white matter disease, which likely represents chronic small vessel i schemic disease. 3. No aneurysm or significant intracranial arterial stenosis. 4. 0% stenosis of the proximal internal carotid arteries relative to normal distal artery lumen diame ters (NASCET criteria). Reviewed, dictated and finalized at location A. CTOR PERIOPERATIVE IMPRESSION: 1. Old infarct in the right cerebellum. 2. Moderate nonspecific cerebral white matter disease, which likely represents chronic small vessel ischemic disease. 3. No aneurysm or significant intracranial arterial stenosis. 4. 0% stenosis of the proximal internal carotid arteries relative to normal dis abby artery lumen diameters (NASCET criteria).
--- NOTE | ~2023-08-28 | XR_ITS ---
EXAMINATION: XR chest 1V portable DATE: 08/28/2023 12:58 INDICATION: Slurred speech. TECHNIQUE: A single frontal view of the chest was obtained. COMPARISON: Chest 2 views 12/22/2022 FINDINGS: There is no pneumonia, pleural effusion, or pneumothorax. The heart size is normal. IMPRESSION: 1. No acute cardiopulmonary disease. Reviewed, dictated and finalized at location A. MACY INFORMATICIST
--- NOTE | ~2023-08-28 | CT_ITS ---
EXAMINATION: CT brain wo con DATE: 08/28/2023 13:43 INDICATION: Slurred speech. TECHNIQUE: Computed tomography (CT) of the head was performed without intravenous contrast. The mA wa s adjusted according to patient size. Iterative reconstruction technique was employed. The dose-lengt h product was 681.00 mGy-cm. COMPARISON: Head CT 08/20/2018 FINDINGS: There is an old infarct in right cerebellum. There are scattered areas of low attenuation i n the cerebral white matter. There is no intracranial hemorrhage, acute infarction, or abnormal intra cranial mass lesion. The ventricles are normal in size. The orbits are normal. There is mild mucosal thickening in the ethmoid sinuses. The mastoid air cells are normal. IMPRESSION: 1. Old infarct in the right cerebellum. 2. Moderate nonspecific cerebral white matter disease, which likely represents chronic small vessel i schemic disease. Reviewed, dictated and finalized at location A. [facility] HOSPICE OPERATIONS IMPRESSION: 1. Old infarct in the right cerebellum. 2. Moderate nonspecific cerebral white matter disease, which likely represents chronic small vessel ischemic disease.
--- NOTE | 2023-08-28 12:48 | ECG_ITS ---
Measurements Intervals [place] Rate: 109 P: -5 DC: 175 QRS: -77 QRSD: 134 T: 13 QT: 357 QTc: 481 Interpretive Statements SINUS TACHYCARDIA RIGHT BUNDLE BRANCH BLOCK [120+ ms QRS DURATION, UPRIGHT V1, 40+ ms S IN I/aVL/V4/V5/V6] INFERIOR MYOCARDIAL INFARCTION , PROBABLY OLD [40+ ms Q WAVE AND/OR ST/T ABNORMALITY IN II/aVF] ANTEROLATERAL MYOCARDIAL INFARCTION , OF INDETERMINATE AGE [40+ ms Q WAVE IN I/aVL/V3- V6] COMPARED TO ECG 12/22/2022 15:06:48 NO SIGNIFICANT CHANGES Electronically Signed On 08-28-2023 15:51:34 FOOD PREPARER by Abida Bell M.D.
[2023-08-28 12:54] LABS: Glucose Point of Care 253 mg/dl (65-105)
[2023-08-28 14:26] LABS: Basophils Absolute Auto 0.1 K/mm3 (0.0-0.1); Basophils Percent Auto 0.5 % (0.2-1.2); Eosinophils Absolute Auto 0.2 K/mm3 (0-0.3); Eosinophils Percent Auto 1.5 % (0-4.4); Hematocrit 44.3 % (37.0-47.0); Hemoglobin 14.8 g/dL (12.0-15.0); Immature Granulocyte Absolute 0.04 K/mm3 (0.00-0.031); Immature Granulocyte Percent A 0.4 % (0-0.5); Lymphocytes Absolute Auto 2.27 K/mm3 (0.9-3.2); Lymphocytes Percent Auto 21.8 % (18.3-44.2); Mean Corpuscular HGB Conc 33.4 g/dl (32-36); Mean Corpuscular Hemoglobin 29.5 pg (26-34); Mean Corpuscular Volume 88.4 fl (80-100); Mean Platelet Volume 10.3 fl (7.4-10.4); Monocytes Absolute Auto 0.6 K/mm3 (0.1-0.6); Monocytes Percent Auto 5.5 % (2.6-8.5); Neutrophils Absolute Auto 7.3 K/mm3 (1.3-6.7); Neutrophils Percent Auto 70.3 % (45.5-73.1); Platelet Count Result 314 k/mm3 (150-375); Red Blood Count 5.01 M/mm3 (4.2-5.4); Red Cell Distribution Width 13.2 % (11.5-14.5); White Blood Count 10.4 K/mm3 (4.5-10.0)
[2023-08-28 14:32] LABS: Alanine Aminotransferase 23 U/L (6-35); Albumin Level 4.2 g/dL (3.5-5.1); Alkaline Phosphatase 103 U/L (38-126); Anion Gap 12 mmol/L (8-16); Aspartate Amino Transferase 31 U/L (14-36); Bilirubin,Total 0.7 mg/dL (0.2-1.3); Blood Urea Nitrogen 22 mg/dL (7-17); Carbon Dioxide 22 mmol/L (22-30); Chloride 101 mmol/L (98-107); Estimated CRCL calculation 51 ml/min; Estimated Glomerular Filt Rate > 60; Glucose 285 mg/dL (65-110); Potassium 4.4 mmol/L (3.4-5.0); Sodium 135 mmol/L (137-145)
[2023-08-28 14:37] LABS: INR 0.9; Prothrombin Time 12.4 Seconds (11.1-14.7)
[2023-08-28 14:44] LABS: Troponin I < 0.012 ng/mL (0.000-0.034)
--- NOTE | 2023-08-28 14:52 | ED.WEAKNESS ---
HPI - Weakness General Chief complaint: Weakness Stated complaint: weakness Time Seen by Provider: 08/28/23 14:03 Source: patient and family Mode of arrival: EMS Limitations: no limitations History of Present Illness HPI Narrative: Chief complaint listed as weakness but patient and her report confusion and inappropriate speech. Patient states this started at 12:15pm but says she was saying some odd things at 8:30 am when she got up (thus last known well as last night). Patient states she couldn't talk straight . She knew what she wanted to say but found that she couldn't say it. She denies feeling confused about what she was hearing at the time. Patient states she had as stroke 4-5 years ago that presented with weakness and speech issues. No sequelae from this but after work-up/imaging including MRI she was told she had had 2 strokes. Patient denies any generalized or unilateral weakness with today's presentation. She does not take aspirin at baseline but did take some this morning as a precautionary measure. Related Data Home Medications Medication Instructions Recorded Confirmed metformin 500 mg tablet 500 mg PO QID 12/06/19 08/28/23 brimonidine 0.2 % eye drops 1 drp EACH EYE BID 08/15/21 08/28/23 timolol maleate 0.5 % eye drops 1 drp EACH EYE BID 08/15/21 08/28/23 diphenhydramine HCl 25 mg capsule 25 mg PO QHS PRN sleep 09/13/21 08/28/23 (Benadryl) aspirin 81 mg tablet,delayed 81 mg PO DAILY 04/17/22 08/28/23 release docusate sodium 50 mg capsule 100 mg PO PRN PRN Constipation 05/28/22 08/28/23 omega [id number] oil 1,000 mg 2 cap PO DAILY 08/12/23 08/28/23 (120 mg-180 mg) capsule (Fish Oil) empagliflozin 25 mg tablet 25 mg PO DAILY 08/28/23 08/28/23 (Jardiance) levothyroxine 112 mcg tablet 112 mcg PO QAM 08/28/23 08/28/23 lisinopril 20 mg tablet 20 mg PO BID 08/28/23 08/28/23 magnesium oxide 400 mg (241.3 mg 400 mg PO DAILY 08/28/23 08/28/23 magnesium) tablet rosuvastatin 20 mg tablet 20 mg PO DAILY 08/28/23 08/28/23 triamcinolone acetonide 0.1 % 1 applic topical 3XW 08/28/23 08/28/23 topical ointment Allergies Allergy/AdvReac Type Severity Reaction Status Date / Time cephalexin Allergy Mild Hives Verified 05/07/23 12:23 Sulfa (Sulfonamide Allergy Mild THRUSH Verified 05/07/23 12:23 Antibiotics) ciprofloxacin AdvReac Mild Nausea and Verified 05/07/23 12:23 Vomiting [facility] Past Medical History Medical History (Updated 08/29/23 @ 19:06 by Sonja Castle MD) Adenomatous colon polyp Ankylosing spondylitis CVA (cerebral vascular accident) CT evidence of old right cerebellar infarct Gastric polyp GERD (gastroesophageal reflux disease) Glaucoma Hidradenitis Hypercholesterolemia Hypertension Hypothyroid Mixed hyperlipidemia 08/08/2023: triglycerides 292, total cholesterol 208, LDL 105, VLDL 50, HDL 53 Pancreatic cyst Pancreatitis Idiopathic status post ERCP TIA (transient ischemic attack) Type 2 diabetes mellitus Surgical History Surgical History (Updated 08/29/23 @ 03:05 by Rayne Gordon DO) History of section History of esophagogastroduodenoscopy (EGD) History of hysterectomy History of total right knee replacement Hx of colonoscopy Family History Family History Mother Hypertension Family history of cardiovascular disease Father Family history of cardiovascular disease Family history of Alzheimer's disease Social History Social History (Updated 08/29/23 @ 03:06 by Rayne Gordon DO) Social History: The patient lives with her who she is twice. They have been together since 1976. She is a lifelong nonsmoker and does not drink alcohol. She has been on disability for many years due to her history of scoliosis and ankylosing spondylitis. Code status: Full code Surrogate decision maker: Smoking status: Never smoker Alcohol intake: never
[2023-08-28 16:15] LABS: Appearance Urine Clear (Clear); Bilirubin Urine Negative (Negative); Blood Urine Negative (Negative); Color Urine Yellow (Yellow); Glucose Urine UA 3+ mg/dL (Negative); Ketones Urine Trace mg/dL (Negative); Leukocyte Esterase Ur Negative LEU/UL (Negative); Nitrate Urine Negative (Negative); Protein Urine Negative (Negative); Specific Grav Ur 1.025 (1.001-1.035); Urobilinogen Urine 0.2 mg/dL (<2.0); pH Urine 5.5 (5.0-9.0)
[2023-08-28 16:18] LABS: Add Urine Microscopic? NO
--- NOTE | 2023-08-28 17:53 | WPDNEURCNPN ---
Assessment and Plan Assessment and plan (1) Left-sided cerebrovascular accident (CVA): Code(s): I63.9 - Cerebral infarction, unspecified Status: Acute Plan History suggestive of left hemispheric dysfunction with mixed aphasia presented paraphasic errors lasting for few hours today, now resolved. Patient history of cerebrovascular disease with 2 episodes of transient attack in 2018 or 19 and another few spells suspicious of stroke according the family. Risk factors include history of diabetes mellitus for over [address] scan of brain did not show any new findings however there is evidence of an old infarct in the right cerebellar region. CT angiogram head and neck was performed which did not show any significant large vessel disease. Insert this time see needs to be admitted and follow following 1. MRI of the brain without contrast tomorrow 2. EEG 3. Maximum medical therapy with statins and antiplatelets. Her family members told me she does not always take her medications regularly. She has been somewhat obsessed by a new medication Jardiance added for her diabetes. However she also did not take her status regularly. Her daughter thinks that she may take statin up to 3 times a week instead of daily. They all are concerned about her compliance issue and understand that we need to try and improve this. Consult date: 08/28/23 Reason for consult: The patient is 73 years old with history of transient ischemic attack at least twice in the past presented today with the onset of difficulty with speech. See in the way look confused to the family since she was using wrong words. She was showing the remote control and calling or something else her recorded there is a having another spell where sees not quite right. This happened around 12 50 in the early afternoon and they last for a few hours and she has now returned back to her normal baseline. The patient and her and daughter were present at times evaluation. The daughter and the both feel that there have been some drifting of the memory gradually over the last few years. She also had some issue office he had COVID a year ago. Her daughter feels convinced that she is having strokes at times. She is wondering if this could be causing the memory problem. states that she sometimes repeats herself. She also did not pay attention to the details as he used to. No recent febrile illness or any chest pain or headache or any fall or injuries reported. HPI: Debbie Enriquez is a 73 year old female Review of Systems Review of Systems: All systems reviewed & are unremarkable except as noted in HPI and below PMFSH Past Medical History Medical History (Updated 08/28/23 @ 18:01 by Coral Feliciano MD) Adenomatous colon polyp Ankylosing spondylitis Cerebrovascular disease Diabetes GERD (gastroesophageal reflux disease) Glaucoma Hypercholesterolemia Hypertension Hypothyroid Left-sided cerebrovascular accident (CVA) Pancreatic cyst Pancreatitis TIA (transient ischemic attack) Surgical History Surgical History History of esophagogastroduodenoscopy (EGD) Hx of colonoscopy Family History Family History Mother Hypertension Family history of cardiovascular disease Father Family history of cardiovascular disease Family history of Alzheimer's disease Social History Social History Smoking status: Never smoker Alcohol intake: never Substance use: never Substance use type: does not use Living arrangements: with family Spiritual care concerns: No Meds Home Medications and Allergies Home Medications Medication Instructions Recorded Confirmed Type metformin 500 mg tablet 500 mg PO QID 12/06/19 05/07/23 History ibuprofen 600 mg tablet 600 mg PO TID
--- NOTE | 2023-08-28 18:37 | PC.NURSE ---
Pt provided sandwich, chips, and soda.
--- NOTE | 2023-08-28 19:57 | PM.IMHP ---
H&P: HPI History of Present Illness Date/Time: 08/28/23 19:57 Chief Complaint: Weakness Narrative: 73-year-old female with a past medical history of essential hypertension, glaucoma, hypothyroidism, diabetes and prior TIA who presented to the ER for evaluation of weakness and concern for possible stroke. The patient's last known normal was yesterday. Earlier today patient developed difficulty speaking and was inserting inappropriate words. The patient reported that she picked up the remote control and could not figure out how to operate it to change the channel. She went to talk to her about it and was inserting words about doing laundry instead of talking about the remote control. Her at that time decided to call EMS. Symptoms started around 12:50 in the afternoon. They lasted for few hours and then resolved. Patient had CT scan performed in the ER and a CTA of the head and neck which demonstrated no acute process but evidence of old cerebellar infarct. The patient reports that she had not been taking her aspirin like she should and was only taking it on rare occasion. When her symptoms did start she did take her 81 mg aspirin. She also only takes her rosuvastatin a couple of times a week. She does state that she has been urinating more than usual but reports that she was just started on a sample pack of Jardiance this week. She denies any dysuria, hematuria, or dysuria. 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 She uses a cream on this area 3 times a week which she has not used recently. She denies any fever chills or recent signs of illness. She reports that her sugars have been uncontrolled prior to initiation of Jardiance. At time of arrival to the hospital patient's glucoses were still uncontrolled and greater than 200. Per the ER records, the family has noticed a decline in the patient's memory over the last few years. The patient was having some difficulty with word finding at the time my evaluation and was occasionally inserting inappropriate words. She was oriented to person, place and year but was confused as to the month. She was getting frustrated with difficulty with finding words. She had some weakness on plantar flexion of the left leg but no pronator drift of the arms or legs at the time of my evaluation. Her cranial nerves were grossly intact at that time and she denied any vision changes, headache or confusion. Shortly after my evaluation the nurses went in to do routine rounds in the patient was having increasing difficulty with word finding. She was also reporting a severe headache and did have some nausea and vomiting shortly after. Patient was not realizing that she was sexually using word substitution and her symptoms seemed to escalate over 15-20 minute interval. The rest of her fast exam was unremarkable. Neurology was contacted and patient was started on Plavix and atorvastatin immediately. Patient's pupils were equal. Frequency of neuro checks was increased. Patient was initiated on telemetry as she was tachycardic and to monitor for possible episodes of cardia repeat arrhythmia that may result in thrombus or stroke. Review of Systems Review of Systems: 12 systems were reviewed with pertinent positives and negatives per HPI. Except as documented in the HPI, all other systems were reviewed and are negative. [facility] Past Medical History Medical History (Updated 08/29/23 @ 03:05 by Rayne Gordon, ) Adenomatous colon polyp Ankylosing spondylitis CVA (cerebral vascular accident) CT evidence of old right cerebellar infarct Gastric polyp GERD (gastroesophageal reflux disease) Glaucoma Hidradenitis Hypercholesterolemia Hypertension Hypothyroid Mixed hyperlipidemia 08/08/2023: triglycerides 292, total cholesterol 208, LDL 105, VLDL 50, HDL 53 Pancreatic cyst Pancreatitis Idiopathic status post ERCP TIA (transient ischemic attack) Type 2 diabe
[2023-08-28 20:02] LABS: Cholesterol 181 mg/dL (0-200); HDL Direct 43 mg/dL
[2023-08-28 20:12] LABS: LDL Cholesterol Direct 90 mg/dL
[2023-08-28 20:18] LABS: Triglycerides 622 mg/dL (<150)
--- NOTE | 2023-08-28 20:37 | ADMGEN ---
This patient, Debbie Enriquez, was admitted to [address] [place] [address] Room 317-02 at 20:18. Patient/family oriented to hospital policies and general routines including ID bracelet, bed and alarms, visiting hours, pain management, procedures, bathroom and other care routines, personal items, smoking policy, room service/diet, and visiting hours. Information on how to activate the Rapid Response Team has been discussed. Patient/Family are encouraged to report perceived risks to care and to ask questions if they do not understand what they are told or what they should do.
[2023-08-28 21:15] LABS: Folic Acid > 20.0 ng/mL (2.76->20)
[2023-08-28] MEDS: SODIUM CHLORIDE 0.9% IV 1,000 ML 100 ML IV CONT (21:28)
[2023-08-28 21:48] LABS: Vitamin D 25 Hydroxy 32.7 ng/mL
[2023-08-28] MEDS: ACETAMINOPHEN 325 MG TABLET 650 MG PO (22:53)
[2023-08-28] MEDS: ASPIRIN 325 MG TABLET PO (23:30)
[2023-08-28] MEDS: CLOPIDOGREL BISULFATE 300 MG TABLET PO (23:31)
[2023-08-28] MEDS: ATORVASTATIN 40 MG TABLET 80 MG PO (23:31)
[2023-08-29] VITALS (8 sets, daily range): BP systolic 119–150; BP diastolic 61–83; PULSE 81–110; RESP 16–18; TEMP 35.8–36.6; O2SAT 95–100
[2023-08-29] MEDS: PROCHLORPERAZINE EDISYLATE 10 MG/2 ML VIAL 5 MG IV PUSH (01:53)
[2023-08-29] MEDS: LEVOTHYROXINE SODIUM 112 MCG TABLET PO (06:10)
[2023-08-29 06:26] LABS: Hemoglobin A1C 11.2 % (<5.7)
[2023-08-29 06:32] LABS: Anion Gap 11 mmol/L (8-16); Blood Urea Nitrogen 20 mg/dL (7-17); Calcium 9.8 mg/dL (8.4-10.2); Carbon Dioxide 24 mmol/L (22-30); Chloride 101 mmol/L (98-107); Estimated CRCL calculation 58 ml/min; Estimated Glomerular Filt Rate > 60; Glucose 270 mg/dL (65-110); Potassium 4.3 mmol/L (3.4-5.0); Sodium 136 mmol/L (137-145)
[2023-08-29] MEDS: LORazepam INJ (*CRX) 2 MG/ML VIAL 1 MG IV PUSH ×2 (08:08→20:15)
--- NOTE | 2023-08-29 08:34 | PCNEURO ---
EEG was attempted this AM but patient out of room having another test.
[2023-08-29 08:57] LABS: Glucose Point of Care 232 mg/dl (65-105)
--- NOTE | 2023-08-29 09:07 | PCPTNOTE ---
Attempted PT evaluation, pt refused due to eating breakfast. Will follow
[2023-08-29] MEDS: INSULIN ASPART (*BKC) 100 UNITS/ML SUB-Q ×3 (09:55→18:18)
[2023-08-29] MEDS: OMEGA 3 POLYUNSAT FATTY ACIDS 1 GM CAP 2 GM PO (09:56)
[2023-08-29] MEDS: lisinopriL 20 MG TABLET PO ×2 (09:56→20:16)
[2023-08-29] MEDS: EMPAGLIFLOZIN 25 MG TABLET PO (09:56)
[2023-08-29] MEDS: TIMOLOL MALEATE 0.5% OP SOLN 5 ML BOTTLE 1 DROP EACH EYE ×2 (10:46→20:22)
[2023-08-29] MEDS: TRIAMCINOLONE ACET 0.1% OINT 15 GM TUBE 1 APPLIC TOPICAL (10:46)
[2023-08-29] MEDS: BRIMONIDINE TARTRATE 0.2% OP SOLN 5 ML BTL 1 DROP EACH EYE ×2 (10:46→20:22)
[2023-08-29 11:58] LABS: Glucose Point of Care 213 mg/dl (65-105)
[2023-08-29] MEDS: MAGNESIUM OXIDE 400 MG TABLET PO (13:11)
--- NOTE | 2023-08-29 13:40 | PCPTNOTE ---
Attemtped PT evaluation, pt refused stating I can't even sit side of bed I am so tired. Pt spouse present stating pt needs to sleep. RN aware. Will follow.
--- NOTE | 2023-08-29 14:44 | PM.IMPN ---
Progress Note: A&P Assessment and Plan (1) Left-sided cerebrovascular accident (CVA): Code(s): I63.9 - Cerebral infarction, unspecified Status: Acute Assessment and Plan: -neurology consulted appreciate recommendation and plan -atorvastatin 80 mg given in the ED -continue atorvastatin 80 mg daily Loading dose clopidogrel 300 mg given -continue clopidogrel 75 mg p.o. daily Allow for permissive HTN, no blood pressure medication within the next 48 hours -echo with bubble study pending -speech eval and treat - (2) Mixed hyperlipidemia: Code(s): E78.2 - Mixed hyperlipidemia Status: Acute (3) Type 2 diabetes mellitus with hyperglycemia, without long-term current use of insulin: Code(s): E11.65 - Type 2 diabetes mellitus with hyperglycemia Status: Acute Assessment and Plan: -hold metformin, Jardiance p.o. -last A1c 08/29/2023 is 11.2 -initiate bedside glucose management a.c. HS (4) Sinus tachycardia: Code(s): R00.0 - Tachycardia, unspecified Status: Acute Assessment and Plan: -continue telemetry monitoring (5) Anxiety about health: Code(s): R45.89 - Other symptoms and signs involving emotional state Status: Acute Assessment and Plan: -patient anxious to have MRI of the brain performed -order 1 mg lorazepam q.6 hours for anxiety Plan Continue home medications: VTE Prophylaxis: SCDs DIET: Diabetic consistent carbohydrate diet Anticipated hospital stay: > 2 days Code Status: Full Subjective Date/time seen: 08/29/23 14:44 Interval history: 73-year-old female with a past medical history of essential hypertension, glaucoma, hypothyroidism, diabetes and prior TIA who presented to the ER for evaluation of weakness and concern for possible stroke.? The patient's last known normal was yesterday.? Earlier today patient developed difficulty speaking and was inserting inappropriate words.? The patient reported that she picked up the remote control and could not figure out how to operate it to change the channel.? She went to talk to her about it and was inserting words about doing laundry instead of talking about the remote control.? Her at that time decided to call EMS.? Symptoms started around 12:50 in the afternoon.? They lasted for few hours and then resolved.? Patient had CT scan performed in the ER and a CTA of the head and neck which demonstrated no acute process but evidence of old cerebellar infarct.? The patient reports that she had not been taking her aspirin like she should and was only taking it on rare occasion.? When her symptoms did start she did take her 81 mg aspirin.? She also only takes her rosuvastatin a couple of times a week.? She does state that she has been urinating more than usual but reports that she was just started on a sample pack of Jardiance this week.? She denies any dysuria, hematuria, or dysuria.? 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 She uses a cream on this area 3 times a week which she has not used recently.? She denies any fever chills or recent signs of illness.? She reports that her sugars have been uncontrolled prior to initiation of Jardiance.? At time of arrival to the hospital patient's glucoses were still uncontrolled and greater than 200. Per the ER records, the family has noticed a decline in the patient's memory over the last few years. The patient was having some difficulty with word finding at the time my evaluation and was occasionally inserting inappropriate words.? She was oriented to person, place and year but was confused as to the month.? She was getting frustrated with difficulty with finding words.? She had some weakness on plantar flexion of the left leg but no pronator drift of the arms or legs at the time of my evaluation.? Her cranial nerves were grossly intact at that time and she denied any vision changes, headache or confusion.? Shortly after
[2023-08-29 16:24] LABS: Glucose Point of Care 222 mg/dl (65-105)
[2023-08-29] MEDS: SODIUM CHLORIDE 0.9% IV 1,000 ML 100 ML IV CONT (19:00)
[2023-08-29] MEDS: INSULIN GLARGINE (*BKC) 100 UNITS/ML 15 UNITS SUB-Q (20:14)
[2023-08-29] MEDS: INSULIN ASPART (*BKC) 100 UNITS/ML 15 UNITS SUB-Q (20:14)
[2023-08-29] MEDS: CLOPIDOGREL BISULFATE 75 MG TABLET PO (20:16)
[2023-08-29] MEDS: ATORVASTATIN 40 MG TABLET 80 MG PO (20:16)
[2023-08-29] MEDS: ASPIRIN 81 MG CHEWABLE TABLET PO (20:16)
[2023-08-29 20:57] LABS: Glucose Point of Care 405 mg/dl (65-105)
[2023-08-29 22:17] LABS: Glucose Point of Care 260 mg/dl (65-105)
[2023-08-30] VITALS: PULSE 79
[2023-08-30] MEDS: SODIUM CHLORIDE 0.9% IV 1,000 ML 100 ML IV CONT (03:32)
[2023-08-30] MEDS: ACETAMINOPHEN 325 MG TABLET 650 MG PO (03:52)
[2023-08-30 03:57] LABS: Glucose Point of Care 167 mg/dl (65-105)
[2023-08-30 04:00] VITALS: BP 147/66; PULSE 85; RESP 14; TEMP 36.7; O2SAT 99
[2023-08-30 05:09] LABS: Glucose Point of Care 181 mg/dl (65-105)
[2023-08-30] MEDS: LEVOTHYROXINE SODIUM 112 MCG TABLET PO (06:25)
[2023-08-30 06:29] LABS: Basophils Percent Auto 0.7 % (0.2-1.2); Eosinophils Absolute Auto 0.2 K/mm3 (0-0.3); Eosinophils Percent Auto 3.6 % (0-4.4); Hematocrit 40.2 % (37.0-47.0); Immature Granulocyte Absolute 0.02 K/mm3 (0.00-0.031); Immature Granulocyte Percent A 0.3 % (0-0.5); Lymphocytes Absolute Auto 2.07 K/mm3 (0.9-3.2); Lymphocytes Percent Auto 33.8 % (18.3-44.2); Mean Corpuscular HGB Conc 32.3 g/dl (32-36); Mean Corpuscular Hemoglobin 29.3 pg (26-34); Mean Corpuscular Volume 90.5 fl (80-100); Mean Platelet Volume 10.2 fl (7.4-10.4); Monocytes Absolute Auto 0.5 K/mm3 (0.1-0.6); Neutrophils Absolute Auto 3.3 K/mm3 (1.3-6.7); Neutrophils Percent Auto 53.6 % (45.5-73.1); Platelet Count Result 236 k/mm3 (150-375); Red Blood Count 4.44 M/mm3 (4.2-5.4); White Blood Count 6.1 K/mm3 (4.5-10.0)
[2023-08-30 06:36] LABS: Alanine Aminotransferase 16 U/L (6-35); Albumin Level 3.8 g/dL (3.5-5.1); Alkaline Phosphatase 92 U/L (38-126); Anion Gap 6 mmol/L (8-16); Aspartate Amino Transferase 23 U/L (14-36); Bilirubin,Total 0.7 mg/dL (0.2-1.3); Blood Urea Nitrogen 17 mg/dL (7-17); Calcium 9.1 mg/dL (8.4-10.2); Carbon Dioxide 25 mmol/L (22-30); Chloride 106 mmol/L (98-107); Cholesterol 153 mg/dL (0-200); Estimated CRCL calculation 65 ml/min; Estimated Glomerular Filt Rate > 60; Glucose 193 mg/dL (65-110); HDL Direct 44 mg/dL; Sodium 137 mmol/L (137-145); Triglycerides 165 mg/dL (<150)
[2023-08-30 06:47] LABS: LDL Cholesterol Direct 83 mg/dL
[2023-08-30 07:48] LABS: Glucose Point of Care 180 mg/dl (65-105)
[2023-08-30 07:50] VITALS: BP 137/82; PULSE 90; RESP 18; TEMP 36.8; O2SAT 100
[2023-08-30 08:00] VITALS: PULSE 101
[2023-08-30] MEDS: OMEGA 3 POLYUNSAT FATTY ACIDS 1 GM CAP 2 GM PO (08:55)
[2023-08-30] MEDS: lisinopriL 20 MG TABLET PO (08:55)
[2023-08-30] MEDS: TIMOLOL MALEATE 0.5% OP SOLN 5 ML BOTTLE 1 DROP EACH EYE (08:55)
[2023-08-30] MEDS: BRIMONIDINE TARTRATE 0.2% OP SOLN 5 ML BTL 1 DROP EACH EYE (08:55)
[2023-08-30 11:44] LABS: Glucose Point of Care 234 mg/dl (65-105)
[2023-08-30 12:00] VITALS: BP 155/73; PULSE 90; PULSE 94; RESP 22; TEMP 36.6; O2SAT 99
[2023-08-30] MEDS: INSULIN ASPART (*BKC) 100 UNITS/ML SUB-Q (12:06)
[2023-08-30] MEDS: MAGNESIUM OXIDE 400 MG TABLET PO (12:07)
--- NOTE | 2023-08-30 12:39 | PM.DS ---
DS: Admitting Diagnosis Discharge Date 08/30/2023 Admitting Diagnosis Weakness DS: Discharge Diagnosis Discharge Diagnosis (1) Brain TIA: Code(s): G45.9 - Transient cerebral ischemic attack, unspecified Status: Acute (2) Anxiety about health: Code(s): R45.89 - Other symptoms and signs involving emotional state Status: Acute (3) Mixed hyperlipidemia: Code(s): E78.2 - Mixed hyperlipidemia Status: Acute (4) Type 2 diabetes mellitus with hyperglycemia, without long-term current use of insulin: Code(s): E11.65 - Type 2 diabetes mellitus with hyperglycemia Status: Acute (5) Left-sided cerebrovascular accident (CVA): Code(s): I63.9 - Cerebral infarction, unspecified Status: Acute (6) Obesity: Code(s): E66.9 - Obesity, unspecified Status: Acute (7) Hypertension: Code(s): I10 - Essential (primary) hypertension Status: Acute DS: Summary Hospital Course Reason for hospitalization: 73-year-old female with a past medical history of essential hypertension, glaucoma, hypothyroidism, diabetes and prior TIA who presented to the ER for evaluation of weakness and concern for possible stroke. Hospital Course: The patient's last known normal was yesterday.? Earlier today patient developed difficulty speaking and was inserting inappropriate words.? The patient reported that she picked up the remote control and could not figure out how to operate it to change the channel.? She went to talk to her about it and was inserting words about doing laundry instead of talking about the remote control.? Her at that time decided to call EMS.? Symptoms started around 12:50 in the afternoon.? They lasted for few hours and then resolved.? Patient had CT scan performed in the ER and a CTA of the head and neck which demonstrated no acute process but evidence of old cerebellar infarct.? The patient reports that she had not been taking her aspirin like she should and was only taking it on rare occasion.? When her symptoms did start she did take her 81 mg aspirin.? She also only takes her rosuvastatin a couple of times a week.? She does state that she has been urinating more than usual but reports that she was just started on a sample pack of Jardiance this week.? She denies any dysuria, hematuria, or dysuria.? 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 She uses a cream on this area 3 times a week which she has not used recently.? She denies any fever chills or recent signs of illness.? She reports that her sugars have been uncontrolled prior to initiation of Jardiance.? At time of arrival to the hospital patient's glucoses were still uncontrolled and greater than 200. Per the ER records, the family has noticed a decline in the patient's memory over the last few years. The patient was having some difficulty with word finding at the time my evaluation and was occasionally inserting inappropriate words.? She was oriented to person, place and year but was confused as to the month.? She was getting frustrated with difficulty with finding words.? She had some weakness on plantar flexion of the left leg but no pronator drift of the arms or legs at the time of my evaluation.? Her cranial nerves were grossly intact at that time and she denied any vision changes, headache or confusion.? Shortly after my evaluation the nurses went in to do routine rounds in the patient was having increasing difficulty with word finding.? She was also reporting a severe headache and did have some nausea and vomiting shortly after.? Patient was not realizing that she was sexually using word substitution and her symptoms seemed to escalate over 15-20 minute interval.? The rest of her fast exam was unremarkable.? Neurology was contacted and patient was started on Plavix and atorvastatin immediately.? Patient's pupils were equal.? Frequency of neuro checks was increased.? Patient was initia
--- NOTE | 2023-08-30 14:17 | PC.NURSE ---
Instructed patient to hold her rosuvastatin until they follow up with Dr. Aguilar per the hospitalist Jhoana Diaz.
--- NOTE | 2023-08-30 15:11 | ECHO_ITS ---
Patient Info Name: Debbie Enriquez Age: 73 years : 1950 Gender: Female Ht: 70 in Wt: 180 lbs BSA: 2.02 m2 HR: 94 bpm BP: 119 / 61 mmHg Heart Rhythm: Sinus Rhythm Technical Quality: Good Exam Date: 08/30/2023 8:20 AM Exam Location: Echo Lab Patient Status: Inpatient Admit Date: 08/28/2023 Staff Ordering Physician: Jhoana Diaz APRN [employer]: Asher Monk RDCS Attending Provider: Christian Landa MD Referring Physician: Emily MARTÍNEZ; Exam Type: CA echo doppler w bubble study Study Info Indications - stroke Complete two-dimensional, color flow and Doppler transthoracic echocardiogram is performed with agitated saline. Summary 1. Left ventricular chamber dimension is normal. 2. Left ventricular systolic function is normal, estimated at 65-70%. 3. There is mildly increased left ventricular wall thickness. 4. The left ventricular diastolic function is grade I diastolic dysfunction. 5. Intact interatrial septum visualized by color flow and agitated saline imaging. 6. There is mild tricuspid valve regurgitation. Left Ventricle Left ventricular chamber dimension is normal. Left ventricular systolic function is normal, estimated at 65-70%. There is mildly increased left ventricular wall thickness. The left ventricular diastolic function is grade I diastolic dysfunction. Right Ventricle Right ventricular chamber dimension is normal. Right ventricular systolic function is normal. Left Atria Left atrial chamber dimension is normal. Right Atria Right atrial chamber dimension is normal. Atrial Septum Intact interatrial septum visualized by color flow and agitated saline imaging. Aortic Valve The aortic valve is trileaflet. There is mild aortic valve sclerosis. There is no aortic valve stenosis. There is trace aortic valve regurgitation. Pulmonic Valve The pulmonic valve is normal. There is no pulmonic valve stenosis. There is trace pulmonic regurgitation. Mitral Valve The mitral valve has normal leaflets. There is no mitral valve stenosis. There is trace mitral valve regurgitation. Tricuspid Valve The tricuspid valve leaflets are normal. There is no significant tricuspid valve stenosis. There is mild tricuspid valve regurgitation. No pulmonary hypertension, estimated pulmonary arterial systolic pressure is 26 mmHg. Pericardium/Pleural The pericardium appears normal. There is no pericardial effusion. Aorta The aortic root size at the sinus of Valsalva is normal. Left Ventricular Outflow Tract Name Value Normal LVOT 2D LVOT Diameter 2.0 cm LVOT Doppler LVOT Peak Gradient 3 mmHg LVOT Mean Gradient 2 mmHg LVOT VTI 19 cm LVOT VTI/AV VTI Ratio 0.6 LVOT Stroke Volume 63 ml LVOT CO 5.7 l/min LVOT CI 2.8 l/min/m2 Pulmonic Valve Name Value Normal RVOT Doppler
--- NOTE | 2023-09-01 19:01 | P.NEURO_ITS ---
Neurology EEG Report General Information Date of Study: 08/29/23 TEST electroencephalogram DIAGNOSIS changes in mental status CLINICAL HISTORY history of changes in mental status prior to the admission EEG DESCRIPTION During wakefulness the background activity consists of posterior dominant alpha rhythm at 8 hertz with an amplitude of 15-35 microvolts which appears moderately formed. Anteriorly low amplitude mixed frequency activity is seen. There is a mild anteroposterior gradient. During drowsiness attenuation of background acti vity and diffuse theta activity and frontal intermittent rhythmic delta activity were seen. Hyperventilation of 40 cm not performed. Patient did not progress to stage 2 sleep. IMPRESSION This is a normal EEG obtained during awake and drowsy states.
--- NOTE | 2023-09-01 19:12 | WPDNEUROLOGY ---
Neurology EEG Report General Information Date of Study: 09/01/23 TEST Electroencephalogram DIAGNOSIS numbness in the right side of the body CLINICAL HISTORY new onset of intermittent numbness in the right side of the body EEG DESCRIPTION During wakefulness, the background activity consists of posterior dominant alpha rhythm at 9-10 hertz with an amplitude of 15-35 microvolts appears more deformed. Anteriorly low amplitude mixed frequency activity was seen. Hyperventilation or 40 shown her not performed. Patient progressed to stage 1 and stage 2 sleep during which vertex waves, sleep spindles and K complexes were seen. IMPRESSION This is a normal EEG obtained during awake and sleep states.
== END 2023-08-30 14:30 | disposition home health service (06) ==
LOC: ANHED 14:37 → ANH3MEDSUR 19:15
PROVIDERS: Internal Medicine; Nurse Practitioner; Preventive Medicine Aerospace Medicine; Psychiatry & Neurology Neurology; Admitting Provider Family Medicine; Emergency Provider Student in an Organized Health Care Education/Training Program; PCP Physician Assistant; Visit Provider Family Medicine
DX: I63.9 Cerebral infarction, unspecified (principal); R45.89 Other symptoms and signs involving emotional state; G47.10 Hypersomnia, unspecified; R00.0 Tachycardia, unspecified; I45.10 Unspecified right bundle-branch block; R29.700 NIHSS score 0; K21.9 Gastro-esophageal reflux disease without esophagitis; H40.9 Unspecified glaucoma; E78.2 Mixed hyperlipidemia; I10 Essential (primary) hypertension; E11.65 Type 2 diabetes mellitus with hyperglycemia; E03.9 Hypothyroidism, unspecified; M41.9 Scoliosis, unspecified; M45.9 Ankylosing spondylitis of unspecified sites in spine; L43.9 Lichen planus, unspecified; Z86.73 Personal history of transient ischemic attack (TIA), and cerebral infarction without residual deficits; Z79.82 Long term (current) use of aspirin; Z79.84 Long term (current) use of oral hypoglycemic drugs; Z79.51 Long term (current) use of inhaled steroids; Z79.52 Long term (current) use of systemic steroids; Z79.899 Other long term (current) drug therapy; Z82.49 Family history of ischemic heart disease and other diseases of the circulatory system
CPT/HCPCS: 36415; 70450; 70496; 70498; 70551; 71045; 80048; 80053; 80061; 81003; 82306; 82607; 82746; 82948; 83036; 84484; 85025; 85610; 85730; 92523; 93005; 93306; 95816; 96361; 96374; 96375; 97161; 97166; 99285; A9270; G0378; J0780; J1815; J2060; J7030; Q9967

== ENCOUNTER 2023-11-07 08:43 | Outpatient (CLI) | payer MEDICARE, SELFPAY ==
[2023-11-07 09:48] LABS: Alanine Aminotransferase 76 U/L (6-35); Albumin Level 4.4 g/dL (3.5-5.1); Alkaline Phosphatase 454 U/L (38-126); Anion Gap 10 mmol/L (4-12); Aspartate Amino Transferase 69 U/L (14-36); Bilirubin,Total 0.8 mg/dL (0.2-1.3); Blood Urea Nitrogen 18 mg/dL (7-17); Carbon Dioxide 25 mmol/L (22-30); Chloride 102 mmol/L (98-107); Estimated Glomerular Filt Rate > 60; Glucose 196 mg/dL (65-110); Sodium 137 mmol/L (137-145)
[2023-11-19 13:24] LABS: Alkaline Phosphatase 438 U/L (37-153)
[2023-11-26 12:44] LABS: GGT 354
== END 2023-11-07 08:44 | disposition home or self-care (01) ==
LOC: ANHLAB 08:48
PROVIDERS: PCP Physician Assistant; Visit Provider Physician Assistant
DX: R74.8 Abnormal levels of other serum enzymes (principal)
CPT/HCPCS: 36415; 80053; 82977; 84075; 84080

== ENCOUNTER 2024-10-26 14:54 | Outpatient (CLI) | payer MEDICARE, SELFPAY ==
--- NOTE | ~2024-10-26 | MM_ITS ---
EXAMINATION: MM screening [facility] BI w allei HISTORY: Screening TECHNIQUE: Craniocaudal and mediolateral oblique 3-D tomosynthesis images were obtained and synthetic 2-D images were generated. CAD analysis was submitted and interpreted. COMPARISON: Comparison to multiple prior studies sequentially, with oldest reviewed study dated 10/23. BREAST PARENCHYMAL COMPOSITION: Not dense: There are scattered areas of fibroglandular density. FINDINGS: There is no evidence of suspicious mass, calcification, or architectural distortion to sugg est malignancy in either breast. There has been no suspicious interval change. IMPRESSION: 1. No mammographic evidence of malignancy. 2. Recommend routine screening mammography in one year. BI-RADS Category 1: Negative Reviewed, dictated and finalized at location A.
== END 2024-10-26 14:55 | disposition home or self-care (01) ==
PROVIDERS: PCP Physician Assistant; Visit Provider Physician Assistant
DX: Z12.31 Encounter for screening mammogram for malignant neoplasm of breast (principal)
CPT/HCPCS: 77063; 77067

== ENCOUNTER → 2024-12-18 15:08 | Outpatient (CLI) | payer MEDICARE, SELFPAY ==
--- NOTE | ~2024-12-18 | XR_ITS ---
Right Shoulder Technique: AP and scapular Y views were obtained. Clinical History: Pain Findings: No fracture or dislocation is seen. Osseous alignment is anatomic. The glenohumeral joint i s intact. There is moderate AC joint degenerative change. Soft tissues are unremarkable. Impression: Moderate AC joint degenerative change. Reviewed, dictated and finalized at location . Impression: Moderate AC joint degenerative change.
== END ==
PROVIDERS: PCP Physician Assistant; Visit Provider Physician Assistant
DX: M19.011 Primary osteoarthritis, right shoulder (principal)
CPT/HCPCS: 73030

== ENCOUNTER → 2025-05-24 14:41 | Outpatient (CLI) | payer MEDICARE, SELFPAY ==
--- NOTE | ~2025-05-24 | XR_ITS ---
XR thoracic spine 3V Indication: upper back pain, rt side after fall 1 week ago Comparison: None Findings: Moderate loss of vertebral height. No acute fracture or subluxation. Severe loss of disc height throughout. Soft tissues unremarkable Impression: No acute abnormality. Reviewed, dictated and finalized at location P. OF WOMEN Impression: No acute abnormality.
--- NOTE | ~2025-05-24 | XR_ITS ---
EXAMINATION: [id number], 05/24/2025 14:53 [employer]INE[employer] HISTORY: RT rib pain under breast 1x week after fall nonsmoker COMPARISON: No comparisons available. Findings: No acute fracture or malalignment. No significant degenerative changes. Soft tissues unremarkable. Impression: No acute fracture or malalignment. Reviewed, dictated and finalized at location P. RTRAIN ENGINEER Impression: No acute fracture or malalignment.
== END ==
LOC: EXPCRAD 14:44
PROVIDERS: PCP Physician Assistant; Visit Provider Physician Assistant
DX: M54.9 Dorsalgia, unspecified (principal); R07.89 Other chest pain
CPT/HCPCS: 71101; 72072